=== PATIENT | male | born 1930 | race Caucasian/White ===

== ENCOUNTER 2016-09-02 12:19 | Inpatient (IN) | payer OTHER, BC ==
--- NOTE | 2016-09-02 12:25 | PDOC ---
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 difficile colitis, who presents to the emergency department after he developed the acute onset of shortness of breath associated with mental status change. His home health aid was assisting him as he changed, when the patient abruptly developed difficulty breathing and was sluggishly responsive to her interaction. It is unclear whether or not he lost consciousness, but she is clear that he was not responding appropriately. The episode was not precipitated by coughing, vomiting. The patient is now awake, alert, oriented to person, place and time. He does not recall the episode. He is currently experiencing difficulty breathing, which he states "happens all the time." He states that this is not the most severe episode he has ever had. 09/02/16 12:57 09/02/16 13:01 - Physicial Exam PE: 09/02/16 12:46 The patient is in moderate respiratory distress He is tachypneic He has expiratory wheezes bilaterally He has scattered rhonchi EKG: Sinus tachycardia with occasional premature atrial contractions, inverted T -wave in V1, V2, flat T-wave in aVL, very wavy baseline No obvious ST changes 09/02/16 14:23 - Critical Care Time Total Critical Care Time: 75 Critical Care Statement: The care of this patient involved high complexity decision making to prevent further life threatening deterioration of the patient 's condition and/or to evalute & treat vital organ system(s) failure or risk of failure. - Medical Decision Making 09/02/16 12:27 The patient is in moderate respiratory distress I'm concerned for possible aspiration, given the abrupt nature of the episode He is ALLERGIC to albuterol Will begin Atrovent nebulizer therapy Will administer IV Solu-Medrol Will administer IV magnesium Will begin BiPAP Will obtain labs, using the sepsis order set Will obtain stat portable chest x-ray I discussed the case with the patient's niece, who was on her way to the hospital She states that the patient makes his own medical decisions, but feels that he will have difficulty grasping complex issues even at baseline At this point, he does not appear to have the capacity to make decisions given his severe distress and suspected hypercarbia She feels that he would not want intubation or resuscitation, but would agree to BiPAP She states that during previous hospitalizations he has expressed the desire for DNR/DNI status 09/02/16 12:47 The patient appears somewhat improved after his evening to Atrovent nebulizer treatments He is on BiPAP, tolerating it well Chest x-ray, labs pending 09/02/16 12:49 Chest x-ray emergency Department interpretation: No significant interval change Niece is at the bedside, and is able to again explain to me that on all of his previous admissions he has had DNR/DNI status He will need transfer either to the [facility] ICU, or to [facility], from where he was recently discharged, and to which his niece would like him transferred I have called his roof cement and paint maker helper who is also his forensic toxicologist, and am awaiting a call back 09/02/16 13:03 CBC noted, with leukocytosis He meets diagnostic criteria for SIRS Given the acute nature of the event, I do not feel that he is already infected, and I suspect aspiration pneumonitis However, given the severity of his illness, and his advanced age, we will administer vancomycin and clindamycin to cover aspiration event james 09/02/16 13:[address] Gusman, his forensic toxicologist and roof cement and paint maker helper The patient has advanced stage COPD He clarifies that the patient's "ALLERGIC reaction" to albuterol it is tachycardia The forensic toxicologist has discussed goals of care with the patient and the niece, and they have previously agreed to a DNR/DNI status The niece and patient both wants to maintain the current DNR/DNI status Labs pending Will initiate transfer to the [facility] ICU for further management 09/02/16 13:15 09/02/16 13:26 Labs noted After extensive discussion with the patient's niece, she refuses admission to the [facility], and requests transfer to [facility] I have called his primary care/forensic toxicologist again I'm calling the [facility] transfer center 09/02/16 13:34 Case discussed again with the patient's primary care physician, forensic toxicologist He is accepted for transfer to [facility] I discussed the case with the [facility] emergency physician He is much improved on BiPAP, in very mild respiratory distress, with better air movement, and an improved lung exam I feel that he is stable for transfer on BiPAP 09/02/16 13:[address] Tavares, hospitalist at [facility] who accepts the patient for transfer 09/02/16 14:08 Elevated troponin noted Will repeat EKG At this point in time, I feel that this is demand related Will administer aspirin, but hold anticoagulation at this point in time 09/02/16 14:23 Repeat EKG: Atrial fibrillation with a ventricular rate of approximately 112, inverted T waves in V1 through V3, no obvious ST changes 09/02/16 14:41 I received a call from the hospitalist physician at [facility] She told me that Dr. Dixon, emergency physician who replaced the previous emergency physician, refuses the transfer At this point in time, given the elevated troponin, new onset atrial fibrillation and NSTEMI, I feel that shorter transport time to the [facility] is in the patient's best interest I have discussed this with the daughter, and she agrees Clinical impression: Acute exacerbation of COPD Hypercarbic respiratory failure New-onset atrial fibrillation NSTEMI 09/02/16 14:43 VBG and ABG results noted The VBG was taken before BiPAP The ABG was taken approximately 20 minutes after BiPAP This supports improving respiratory acidosis 09/02/16 15:08 Elevated BNP noted Elevated lactic acid noted I suspect that the elevated lactate is secondary to prolonged hypoxemia, rather than sepsis Given that there is no clear source of infection, he does not meet diagnostic criteria for sepsis The extent of the BNP elevation is suggestive of congestive heart failure Will judiciously administer IV fluids He has a bed in the ICU, and we are awaiting transfer He remains stable for transfer, without any respiratory distress on BiPAP 09/02/16 16:27 Discharge Disposition - Diagnosis COPD with exacerbation - Discharge Dispostion Disposition: TRANSFER ACUTE CARE/OTHER HOSP Condition at time of disposition: Critical Last Admission D/C Date: 03/31/16 Admit: Yes
[2016-09-02] MEDS ORDERED: methylPREDNISolone NA SUCC 125 MG/2 ML VIAL IVPB ONE (12:27)
[2016-09-02] MEDS ORDERED: MAGNESIUM SULFATE 2 GM in SODIUM CHLORIDE 100 ML IVPB ONE (12:27)
[2016-09-02] MEDS ORDERED: IPRATROPIUM BR 0.02% 0.5 MG/2.5 ML VIAL.NEB. NEB PRN ×2 (12:27→12:48)
--- NOTE | 2016-09-02 12:33 | PDOC ---
History of Present Illness - General Chief Complaint: Shortness of Breath Stated Complaint: SOB Time Seen by Provider: 09/02/16 12:22 - History of Present Illness Initial Comments: 09/02/16 12:28 The pt is a 86 year old male with a PMH of COPD, C.Diff. colitis, urinary retention who presents brought by ambulance complaining of SOB for 15 minutes. The pt was being cleaned by health care nurse when became less responsive to her commands and felt SOB. She called EMS immediately. The pt was discharged from the hospital yesterday. He was treated for COPD exacerbation, hyponatremia due to SIADH, C.Diff. colitis. He states that didn't lose consciousness. He states that it is not the worse that he ever felt. The pt denies weakness, headache, chest pain, SOB. He denies abdominal pain, N/V, diarrhea, constipation. No fever, chills.ROS is limited since the pt is in moderate distress. He denies chest pain, palpitations, dizziness, headache, weakness. He denies abdominal pain, N/V, diarrhea, fever, chills. He denies cough. Past History - Past Medical History Allergies/Adverse Reactions: Allergies Allergy/AdvReac Type Severity Reaction Status Date / Time albuterol AdvReac Verified 09/02/16 13:35 Home Medications: Ambulatory Orders Aspirin [ASA -] 81 mg PO DAILY 09/02/16 Beclomethasone Dipropionate [Qnasl] 0 mcg NS DAILY 09/02/16 Budesonide [Pulmicort 0.5 mg Nebulizer -] 1 neb PO BID 09/02/16 Cranberry Conc/Ascorbic Acid [Cranberry Concentrate Softgel] 1 each PO DAILY 06/20 Dextran 70/Hypromellose [Artificial Tears] 1 each OP TID 09/02/16 Escitalopram Oxalate [Lexapro -] 5 mg PO DAILY 09/02/16 Finasteride [Proscar -] 5 mg PO DAILY 09/02/16 Levalbuterol Tartrate [Levalbuterol Tartrate Hfa] 15 gm IH Q6H 09/02/16 Metronidazole [Flagyl -] 500 mg PO DAILY 09/02/16 Miconazole Nitrate [Zeasorb-AF] 1 applic TP BID 09/02/16 Multivitamins [Tab-A-Vit -] 1 tab PO DAILY 09/02/16 Umeclidinium Brm/Vilanterol Tr [Anoro Ellipta 62.5-25 Mcg INH] 1 each IH DAILY 09/02/16 Vancomycin HCl [Vancocin HCl] 250 mg PO Q6H 09/02/16 Cancer: Yes (BLADDER AND COLON) COPD: Yes - Surgical History Abdominal Surgery: Yes (COLON RESECTION) - Psycho/Social/Smoking Cessation Hx Anxiety: No Suicidal Ideation: No Smoking Status: Yes Smoking History: Former smoker Years of Tobacco Use: 20 Have you smoked in the past 12 months: No Number of Cigarettes Smoked Daily: 20 If you are a former smoker, when did you quit?: 1978 Hx Alcohol Use: No Drug/Substance Use Hx: No Substance Use Type: None Hx Substance Use Treatment: No Review of Systems - Review of Systems Able to Perform ROS?: Yes Comments:: 09/02/16 12:31 REVIEW OF SYSTEMS limited due to pt being in distress CONSTITUTIONAL: Absent: fever, chills CARDIOVASCULAR: Absent: chest pain, RESPIRATORY: shortness of breath, Absent: cough, GASTROINTESTINAL: Absent: abdominal pain, GENITOURINARY: Absent: dysuria, frequency NEUROLOGIC: Absent: headache, *Physical Exam - Physical Exam Comments: 09/02/16 12:32 GENERAL: The patient is awake, alert, and fully oriented, in moderate distress. HEAD: Normal with no signs of trauma. EYES: extraocular movements intact, sclera anicteric, conjunctiva clear. ENT: dry mucous membranes. NECK: Trachea midline, full range of motion, supple. LUNGS: Breath sounds equal, scattered rhales, expiratory wheezes, no crackles, no accessory muscle use. HEART: Regular rate and rhythm, S1, S2 without murmur, rub or gallop. ABDOMEN: Soft, nontender, nondistended, normoactive bowel sounds, no guarding, no rebound. EXTREMITIES: well-perfused, no edema. NEUROLOGICAL: Normal speech, gait not observed. PSYCH: Normal mood, normal affect. SKIN: Warm, dry, normal turgor, no rashes or lesions noted Sepulveda Catheter present, draining yellow urine. ED Treatment Course - LABORATORY CBC & Chemistry Diagram: 09/02/16 12:35 09/02/16 12:35 Medical Decision Making - Medical Decision Making 09/02/16 12:33 The pt comes to ED complaining of SOB. Differential diagnosis include ACS, COPD exacerbation, aspiration PNA, URI, heart failure, metabolite abnormalities. 09/02/16 12:54 We ordered CBC, CMP, UA, CXR, EKG, ABGs, blood cx, urine cx, , Vancomycin ONCE, Clindamycin ONCE, Atrovent, Solu-medrol IV. He is currently on 3 L NC. We will start Bi-Pap. 09/02/16 13:22 CXR no acute pathology, no change when compared with previous one. Elevated WBC. Aspiration PNA is very high on differential diagnosis. We will give abx, the pt will be transferred to [facility] for further treatment. We contacted Dr. Bernadette Buchanan his PCP and Collar Worker. We confirmed that the pt has n stage COPD. 09/02/16 13:35 The pt clinically improved. We contacted [facility] ED doctor who accepted him for transfer. We reviewed his laboratory. He is stable enough for the transfer, Waiting for ABGs. results. 09/02/16 14:42 The pt was found to have metabolic acidosis and elevated troponins. He also has new onset of A.Fib. EKG repeated. The family requested transfer to [facility] but he was not accepted. The pt will be transferred to ICU in [facility]. We are waiting for approval. 09/02/16 16:34 ABG suggest that pt has metabolic acidosis, possibly due to hypoxemia not sepsis. His BNP is elevated suggestive for heart failure, elevated lactic acid noted The pt meets SIRS criteria. We will continue IVF and wait for transfer to ICU at [facility]. ta in [facility]. *DC/Admit/Observation/Transfer Diagnosis at time of Disposition: COPD with exacerbation - Discharge Dispostion Disposition: TRANSFER ACUTE CARE/OTHER HOSP Condition at time of disposition: Critical
[2016-09-02] MEDS ORDERED: methylPREDNISolone NA SUCC 125 MG/2 ML VIAL ONE (12:36)
[2016-09-02 12:43] VITALS: BMI 26.5
[2016-09-02] MEDS ORDERED: IPRATROPIUM BR 0.02% 0.5 MG/2.5 ML VIAL.NEB. NEB ONE (12:44)
[2016-09-02 12:52] LABS: BASOPHIL 0.5 % (0-2.0); EOSINOPHIL 0.8 % (0-4.5); MCHC 33.4 g/dl (32.0-35.9); MEAN CELL VOLUME 98.7 fl (80-96); MEAN PLT VOLUME 7.7 fl (7.5-11.1); NEUTROPHILS 49.4 % (42.8-82.8); PLATELET COUNT 312 K/MM3 (134-434); RDW 15.2 % (11.9-15.9); WHITE BLOOD COUNT 17.3 K/mm3 (4.0-10.0)
[2016-09-02] MEDS ORDERED: CLINDAMYCIN IVPB 900 MG in DEXTROSE 5%-WATER - 50 ML IVPB ONE (13:00)
[2016-09-02] MEDS ORDERED: VANCOMYCIN 1,000 MG in DEXTROSE 5%-WATER - 250 ML IVPB ONE (13:01)
[2016-09-02 13:12] LABS: URINE BILIRUBIN Negative (NEGATIVE); URINE GLUCOSE (UA) Negative (NEGATIVE); URINE KETONE Negative (NEGATIVE); URINE LEUK ESTERASE Trace (NEGATIVE); URINE NITRITE Negative (NEGATIVE); URINE UROBILINOGEN 0.2 E.U/dl (0.2-1.0)
[2016-09-02 13:12] LABS: ACTIVATED PTT 30.4 SECONDS (24.0-38.9)
[2016-09-02 13:14] LABS: ALBUMIN 3.6 g/dl (3.5-5.0); ALK PHOS 70 U/L (32-92); ANION GAP 8 (8-16); BILIRUBIN,TOTAL 0.4 mg/dl (0.2-1.0); CALCIUM 9.1 mg/dl (8.4-10.2); CO2 29 mmol/L (22-28); CREATININE 0.6 mg/dl (0.6-1.3); GLUCOSE,RANDOM 297 mg/dl (74-106); SGOT/AST 60 U/L (10-42); SGPT/ALT 14 U/L (10-40); TOT PROT 6.3 g/dl (6.4-8.3)
[2016-09-02] MEDS ORDERED: VANCOMYCIN 1,000 MG VIAL (RESTRICTED TO ID ONLY) ONE (13:14)
[2016-09-02 13:16] LABS: INR 1.16 (0.82-1.09); PROTHROMBIN TIME (PATIENT) 12.9 SEC (10.2-13.0)
[2016-09-02 13:22] LABS: URINE APPEARANCE CLOUDY; URINE BLOOD 3+ (NEGATIVE); URINE COLOR AMBER; URINE PROTEIN 2+ (NEGATIVE)
[2016-09-02 13:34] LABS: URINE RBC >100 /hpf (0-3)
[2016-09-02 13:35] LABS: CALCIUM OXALATE CRYSTALS FEW /hpf (NONE SEEN); URINE BACTERIA RARE /hpf (NEGATIVE)
[2016-09-02 14:02] LABS: TROPONIN I (DFP) 0.55 ng/ml (0.03-0.50)
[2016-09-02] MEDS ORDERED: ASPIRIN 81 MG CHEWABLE TABLETS ONE (14:03)
[2016-09-02] MEDS ORDERED: ASPIRIN 81 MG CHEWABLE TABLETS PO ONE (14:03)
[2016-09-02] MEDS ORDERED: CLINDAMYCIN PHOSPHATE 600 MG/4 ML VIAL ONE (14:03)
[2016-09-02] MEDS ORDERED: CLINDAMYCIN PHOSPHATE 300 MG/2 ML VIAL ONE (14:03)
--- NOTE | 2016-09-02 14:29 | EKG ---
Test Reason : Blood Pressure : / mmHG Vent. Rate : 111 BPM Atrial Rate : 111 BPM P-R Int : 000 ms QRS Dur : 102 ms QT Int : 338 ms P-R-T Axes : 065 008 044 degrees QTc Int : 459 ms POOR DATA QUALITY, INTERPRETATION MAY BE ADVERSELY AFFECTED SINUS TACHYCARDIA LOW VOLTAGE QRS INCOMPLETE RIGHT BUNDLE BRANCH BLOCK NONSPECIFIC T WAVE ABNORMALITY BORDERLINE ECG WHEN COMPARED WITH ECG OF 26-MAR-2016 09:24, INCOMPLETE RIGHT BUNDLE BRANCH BLOCK IS NOW PRESENT Confirmed by KAREN DEMPSEY MD ([id number] on 09/02/2016 2:28:43 PM Referred By: PRAVEEN HAWTHORNE Confirmed By:KAREN DEMPSEY MD
[2016-09-02 14:32] LABS: VENOUS BLOOD GAS HCO3 29.1 meq/L (19-25)
[2016-09-02 14:33] LABS: VENOUS PH 7.18 (7.32-7.42)
[2016-09-02 14:36] LABS: ARTERIAL BLOOD GAS pH 7.33 (7.35-7.45)
[2016-09-02 14:37] LABS: ARTERIAL BLOOD GAS HCO3 27.2 meq/L (22-26); ARTERIAL BLOOD GAS PO2 96.2 mmHg (68-100)
[2016-09-02 14:39] LABS: ALLENS TEST POSITIVE; ART PUNCT SITE RIGHT RADIAL; LPM/O2% 40%; PT. ON O2? YES; VENT RATE 12
[2016-09-02] MEDS ORDERED: SODIUM CHLORIDE 1,000 ML IV SCH ×2 (15:15→17:37)
--- NOTE | 2016-09-02 17:10 | HP ---
CHIEF COMPLAINT: SOB HISTORY OF PRESENT ILLNESS: This is an 86 year-old male with a significant PMH of COPD with multiple aspirations, recurrent c.diff colitis (four episodes since 03/2016), diastolic heart failure, NSTEMI (03/2016), bladder cancer, BPH, obstructive uropathy requiring chronic powers, and colon cancer s/p colon resection. Discharged two days ago from [facility] for SIADH hyponatremia and c.diff colitis. Patient presented earlier today to the [facility] ED after he developed acute onset of SOB with mental status change. His home health aid was assisting him as he changed, when the patient abruptly developed difficulty breathing and was sluggishly responsive to her interaction. It is unclear whether or not he lost consciousness, but she is clear that he was not responding appropriately. The episode was not precipitated by coughing, vomiting. PCP: Dr. Sal, stone derrickman and rigger and economic development manager ([facility]) Rn Urgent Care: Dr. Randy Thornton Urologist: Dr. Vera ([facility]) ER course was notable for: (1) ABG 7.33/53/96/27/97% on 40% FiO2 (2) Initial ECG sinus tach, then new onset afib with RVR @ 112 (3) Initial troponin 0.55 (4) Lactic acid 3.9-->1.6 Recent Travel: No PAST MEDICAL HISTORY: COPD SIADH C.diff colitis Bladder cancer Colon cancer BPH Diastolic heart failure NSTEMI PAST SURGICAL HISTORY: Colon resection Social History: Smoking: quit 1978 Alcohol: No Drugs: No Family History: Allergies Albuterol Adverse Reaction - tachycardia (Verified 09/02/16 13:35) Home Medications Medication Instructions Recorded Acetaminophen [Tylenol] 650 mg PO Q6H PRN 09/02/16 Aspirin [ASA -] 81 mg PO DAILY 09/02/16 Beclomethasone Dipropionate [Qnasl] 0 mcg NS DAILY 09/02/16 Budesonide [Pulmicort 0.5 mg 1 neb PO BID 09/02/16 Nebulizer -] Cranberry Conc/Ascorbic Acid 1 each PO DAILY 09/02/16 [Cranberry Concentrate Softgel] Dextran 70/Hypromellose 1 each OP TID 09/02/16 [Artificial Tears] Escitalopram Oxalate [Lexapro -] 5 mg PO DAILY 09/02/16 Finasteride [Proscar -] 5 mg PO DAILY 09/02/16 Flaxseed/Omega3,6,9/Fatty Acid 1 each PO DAILY 09/02/16 [Flax Seed Oil 1,300 mg Softgel] Levalbuterol Tartrate 15 gm IH Q6H 09/02/16 [Levalbuterol Tartrate Hfa] Metronidazole [Flagyl -] 500 mg PO DAILY 09/02/16 Miconazole Nitrate [Zeasorb-AF] 1 applic TP BID 09/02/16 Multivitamins [Tab-A-Vit -] 1 tab PO DAILY 09/02/16 Sodium Chloride Tablet - 1 gm PO TID 09/02/16 Umeclidinium Brm/Vilanterol Tr 1 each IH DAILY 09/02/16 [Anoro Ellipta 62.5-25 Mcg INH] Vancomycin HCl [Vancocin HCl] 250 mg PO Q6H 09/02/16 REVIEW OF SYSTEMS Unable to ascertain due to altered mental status/illness PHYSICAL EXAMINATION GENERAL: Awake, alert. Oriented x 3 (September 02, 2016, [facility], Pres. Trump) but repeatedly pointing to the ceiling and counting ceiling tiles, confused; very weak HEAD: Normal with no signs of trauma. EYES: Pupils equal, round and reactive to light, extraocular movements intact, sclera anicteric, conjunctiva clear. No lid lag. EARS, NOSE, THROAT: Ears normal, nares patent, oropharynx clear without exudates. Moist mucous membranes. NECK: Normal range of motion, supple without lymphadenopathy, JVD, or masses. LUNGS: Diffuse wheezing, rhochi. No accessory muscle use. HEART: Regular rate and rhythm, normal S1 and S2 without murmur, rub or gallop. ABDOMEN: Soft, nontender, not distended, normoactive bowel sounds, no guarding, no rebound, no masses. MUSCULOSKELETAL: Normal range of motion at all joints. No bony deformities or tenderness. No CVA tenderness. UPPER EXTREMITIES: 2+ pulses, warm, well-perfused. No cyanosis. No clubbing. No peripheral edema. LOWER EXTREMITIES: 2+ pulses, warm, well-perfused. No calf tenderness. No peripheral edema. NEUROLOGICAL: Cranial nerves II-XII intact. Normal speech. Gait not observed. ASSESSMENT/PLAN: 86 year-old male with a significant PMH of COPD with multiple aspirations, recurrent c.diff colitis, bladder cancer, BPH, obstructive uropathy, colon cancer s/p colon resection, diastolic heart failure, NSTEMI, and SIADH hyponatremia. Admitted for acute onset SOB and mental status changes. Acute hypercarbic respiratory failure likely secondary to COPD exacerbation, aspiration --mental status waxes and wanes --oxygenation requirements have improved, off BIPAP, satting 96% on 3L NC --repeat ABG in am --BIPAP PRN Lactic acidosis --resolved Diastolic heart failure, chronic --03/28/16 Echo: LV normal, impaired relaxation; RV normal; no acute valvular pathology --stop IV fluids as patient is hemodynamically stable at this time --no diuresis for now NSTEMI --troponin 0.55-->1.08 --previous NSTEMI in 2015 in similar circumstances following an acute hypoxic event --continue home dose ASA, will not fully anticoagulate given likely this is demand ischemia plus patient with hematuria; discussed with Dr. Mora who concurs New onset afib with RVR --arrived to ED in sinus tach, then afib to 112, now back in sinus rhythm with rate 90s on monitor --repeat ECG pending --hemodynamically stable --ASA only --if recurs start beta nolberto Bladder cancer Gross hematuria BPH --dark red blood in powers, UA with > 100 RBCs --has had chronic powers since 03/2016; had [employer] procedure in 04/2016 but not successful in relieving obstruction --current powers was placed about 3 weeks ago; urine has been clear prior to today --strict I&Os, monitor for obstruction, clotting h/o SIADH hyponatremia --was started on salt tabs 2 days ago when discharged from [facility] with strict fluid restrictions --Na 136 on admission --fluid restrict --renal consult Colon cancer --no acute issues Recurrent C.diff colitis --continue PO vanc and flagyl --c.diff stool study ordered BPH --continue Proscar F/E/N Fluids: PO intake adequate Electrolytes: replete as indicated Nutrition: dysphagia puree, honey thick, Ensure DVT prophylaxis: no chemical prophylaxis due to hematuria; oob, ambulation PT evaluation/daily PT Dispo: continues to require ICU level care. DNR/DNI signed by HCP Carli Reese. Visit type - Emergency Visit Emergency Visit: Yes ED Registration Date: 09/02/16 Care time: The patient presented to the Emergency Department on the above date and was hospitalized for further evaluation of their emergent condition. - New Patient This patient is new to me today: Yes Date on this admission: 09/02/16 - Critical Care Critical Care patient: Yes Total Critical Care Time (in minutes): 120 Critical Care Statement: The care of this patient involved high complexity decision making to prevent further life threatening deterioration of the patient 's condition and/or to evalute & treat vital organ system(s) failure or risk of failure.
[2016-09-02] MEDS ORDERED: metroNIDAZOLE 500 MG TABLET PO SCH (18:30)
[2016-09-02] MEDS: ASPIRIN 81 MG CHEWABLE TABLETS PO SCH (18:30)
[2016-09-02] MEDS ORDERED: PATIENT'S OWN MEDICATION (NON-FORMULARY) (Escitalopram Oxalate [Lexapro -] 5 MG) PO SCH (18:30)
[2016-09-02 19:49] LABS: TROPONIN I 1.08 ng/ml (0.00-0.05)
[2016-09-02] MEDS ORDERED: metroNIDAZOLE 250 MG TABLET PO SCH (20:07)
[2016-09-02] MEDS ORDERED: PT OWN MED DRAWER 7, Y5N ONE (21:36)
[2016-09-02] MEDS: VANCOMYCIN 250 MG/5 ML ORAL SOLUTION PO SCH (21:52)
[2016-09-02] MEDS: ARTIFICIAL TEARS (POLYVINYL ALCOHOL 1.4%) OPTH DROPS OU SCH (21:53)
[2016-09-02] MEDS: ESCITALOPRAM OXALATE 10 MG TABLET (FP) PO SCH (21:53)
[2016-09-02] MEDS: SODIUM CHLORIDE 1 GM TABLET PO SCH (21:54)
[2016-09-02] MEDS: MUPIROCIN 2% TOPICAL OINTMENT FOR DECOLONIZATION NS SCH (21:54)
[2016-09-02] MEDS: FINASTERIDE 5 MG TABLET (FP) PO SCH (21:54)
[2016-09-02] MEDS ORDERED: PATIENT'S OWN MEDICATION (NON-FORMULARY) (Dextran 70/Hypromellose [Artificial Tears] 1 EAC OP SCH (22:00)
[2016-09-02] MEDS ORDERED: CHLORHEXIDINE GLUCONATE 4% CLEANSER FOR DECOLONIZATION TP SCH (22:00)
--- NOTE | 2016-09-02 22:48 | CONSULT ---
Consult Consult Specialty:: Pulm/CCM Reason for Consultation:: AMS - History of Present Illness History of Present Illness: This is an 86 year-old male with a significant PMH of COPD with multiple aspirations, recurrent c.diff colitis (four episodes since 03/2016), diastolic heart failure, NSTEMI (03/2016), bladder cancer, BPH, obstructive uropathy requiring chronic powers, and colon cancer s/p colon resection. Discharged two days ago from [place] for SIADH hyponatremia and c.diff colitis. Patient presented to the [facility] ED after he developed acute onset of SOB and mental status change. The episode was not precipitated by coughing, vomiting. In Ed found to be with hypercarbic respiratory failure with ABG 7.18, 91 which improved to 7.33/53/96 on 40% BiPAP 03/08. He was treated for possible COPD exacerbation and able to wean off BIpAP to NC 3L. Also developed A-fib with RVR to 112 which resolved. Notable labs lact 3.9-> 1.6 with fluid Trop 0.55, WBC 17 , BNP 6313. He was started on antibiotics re c/f recurrent C-diff infection and transfered to ICU for further management. - History Source History Provided By: Medical Record Limitations to Obtaining History: Poor Historian - Past Medical History Cardio/Vascular: Yes: CHF, Other (NSTEMI) Pulmonary: Yes: COPD, Other (multiple aspirations) Gastrointestinal: Yes: Other (Recurrent C-diff colitis) Renal/: Yes: BPH, Hematuria, Other (Obstructive uropathy with chronic powers) Heme/Onc: Yes: Cancer (Colon and bladder) Infectious Disease: Yes: C-Diff - Alcohol/Substance Use Hx Alcohol Use: No - Smoking History Smoking history: Former smoker Have you smoked in the past 12 months: No Aproximately how many cigarettes per day: 20 If you are a former smoker, when did you quit?: 1978 - Social History Usual Living Arrangement: Other (with [facility]) Home Medications - Allergies Allergies/Adverse Reactions: Allergies Allergy/AdvReac Type Severity Reaction Status Date / Time albuterol AdvReac Verified 09/02/16 13:35 - Home Medications Home Medications: Ambulatory Orders Acetaminophen [Tylenol] 650 mg PO Q6H PRN 09/02/16 Aspirin [ASA -] 81 mg PO DAILY 09/02/16 Beclomethasone Dipropionate [Qnasl] 0 mcg NS DAILY 09/02/16 Budesonide [Pulmicort 0.5 mg Nebulizer -] 1 neb PO BID 09/02/16 Cranberry Conc/Ascorbic Acid [Cranberry Concentrate Softgel] 1 each PO DAILY 06/20 Dextran 70/Hypromellose [Artificial Tears] 1 each OP TID 09/02/16 Escitalopram Oxalate [Lexapro -] 5 mg PO DAILY 09/02/16 Finasteride [Proscar -] 5 mg PO DAILY 09/02/16 Flaxseed/Omega3,6,9/Fatty Acid [Flax Seed Oil 1,300 mg Softgel] 1 each PO DAILY 09/02/16 Levalbuterol Tartrate [Levalbuterol Tartrate Hfa] 15 gm IH Q6H 09/02/16 Metronidazole [Flagyl -] 500 mg PO DAILY 09/02/16 Miconazole Nitrate [Zeasorb-AF] 1 applic TP BID 09/02/16 Multivitamins [Tab-A-Vit -] 1 tab PO DAILY 09/02/16 Sodium Chloride Tablet - 1 gm PO TID 09/02/16 Umeclidinium Brm/Vilanterol Tr [Anoro Ellipta 62.5-25 Mcg INH] 1 each IH DAILY 09/02/16 Vancomycin HCl [Vancocin HCl] 250 mg PO Q6H 09/02/16 Family Disease History - Family Disease History Family History: Unremarkable Review of Systems - Review of Systems Constitutional: reports: Weakness Eyes: reports: No Symptoms HENT: reports: No Symptoms Neck: reports: No Symptoms Cardiovascular: reports: No Symptoms Respiratory: reports: No Symptoms Gastrointestinal: reports: No Symptoms Neurological: reports: No Symptoms Hematology/Lymphatic: reports: Easily Bruised Physical Exam Vital Signs: Vital Signs Temperature 97.0 F L 09/02/16 16:52 Pulse Rate 99 H 09/02/16 17:28 Respiratory Rate 22 09/02/16 17:28 Blood Pressure 97/74 09/02/16 16:52 O2 Sat by Pulse Oximetry (%) 96 09/02/16 17:37 Constitutional: Yes: No Distress, Calm Eyes: Yes: Conjunctiva Clear HENT: Yes: Atraumatic, Normocephalic Neck: Yes: WNL Cardiovascular: Yes: Regular Rate and Rhythm Respiratory: Yes: Regular, Diminished, On Nasal O2 Gastrointestinal: Yes: Normal Bowel Sounds, Soft, Other (non tender) Renal/: Yes: Powers Present Extremities: Yes: WNL, Other (Ecchymoses on BUE) Edema: LUE: Trace Integumentary: Yes: Bruising (LUE) Neurological: Yes: Alert (Awake and oriented x3) Labs: ABG Results ABG pH 7.33 (7.35-7.45) L 09/02/16 13:34 ABG pCO2 at Pt Temp 53.0 mmHg (35-45) H D 09/02/16 13:34 ABG pO2 at Pt Temp 96.2 mmHg (68-100) 09/02/16 13:34 ABG HCO3 27.2 meq/L (22-26) H 09/02/16 13:34 ABG O2 Sat (Measured) 97.0 % (90-98.9) 09/02/16 13:34 ABG O2 Content 16.2 % vol (15-22) 09/02/16 13:34 ABG Base Excess 1.0 meq/l (-2-2) 09/02/16 13:34 CMP Sodium 136 mmol/L (136-145) 09/02/16 12:35 Potassium 4.6 mmol/L (3.5-5.1) 09/02/16 12:35 Chloride 99 mmol/L (98-107) 09/02/16 12:35 Carbon Dioxide 29 mmol/L (22-28) H D 09/02/16 12:35 Anion Gap 8 (8-16) 09/02/16 12:35 BUN 25 mg/dl (7-18) H D 09/02/16 12:35 Creatinine 0.6 mg/dl (0.6-1.3) D 09/02/16 12:35 Creat Clearance w eGFR > 60 (>60) 09/02/16 12:35 Random Glucose 297 mg/dl (74-106) H D 09/02/16 12:35 Lactic Acid 1.621 mmol/L (0.4-2.0) 09/02/16 15:06 Calcium 9.1 mg/dl (8.4-10.2) 09/02/16 12:35 Total Bilirubin 0.4 mg/dl (0.2-1.0) D 09/02/16 12:35 AST 60 U/L (10-42) H D 09/02/16 12:35 ALT 14 U/L (10-40) 09/02/16 12:35 Alkaline Phosphatase 70 U/L (32-92) D 09/02/16 12:35 Creatine Kinase 75 IU/L (39-308) 09/02/16 18:45 Troponin I 1.08 ng/ml (0.00-0.05) H* D 09/02/16 18:45 B-Natriuretic Peptide 6318.82 pg/ml (5-450) H 09/02/16 12:35 Total Protein 6.3 g/dl (6.4-8.3) L 09/02/16 12:35 Albumin 3.6 g/dl (3.5-5.0) 09/02/16 12:35 CBC WBC 17.3 K/mm3 (4.0-10.0) H D 09/02/16 12:35 RBC 4.16 M/mm3 (4.00-5.60) 09/02/16 12:35 Hgb 13.7 GM/dl (11.7-16.9) 09/02/16 12:35 Hct 41.1 % (35.4-49) 09/02/16 12:35 MCV 98.7 fl (80-96) H 09/02/16 12:35 MCHC 33.4 g/dl (32.0-35.9) 09/02/16 12:35 RDW 15.2 % (11.9-15.9) D 09/02/16 12:35 Plt Count 312 K/MM3 (134-434) 09/02/16 12:35 MPV 7.7 fl (7.5-11.1) 09/02/16 12:35 Neutrophils % 49.4 % (42.8-82.8) D 09/02/16 12:35 Lymphocytes % 45.4 % (8-40) H D 09/02/16 12:35 Monocytes % 3.9 % (3.8-10.2) 09/02/16 12:35 Eosinophils % 0.8 % (0-4.5) D 09/02/16 12:35 Basophils % 0.5 % (0-2.0) 09/02/16 12:35 Active Medications Acetaminophen (Tylenol -) 650 mg PO Q6H PRN PRN Reason: PAIN Artificial Tears (Artificial Tears) 1 drop OU TID [facility] Last Admin: 09/02/16 21:53 Dose: 1 drop Aspirin (Asa -) 81 mg PO DAILY [facility] Last Admin: 09/02/16 18:30 Dose: Not Given Chlorhexidine Gluconate (Hibiclens For Decolonization -) 1 applic TP HS [facility] Last Admin: 09/02/16 22:29 Dose: 1 applic Escitalopram Oxalate (Lexapro -) 5 mg PO DAILY [facility] Last Admin: 09/02/16 21:53 Dose: 5 mg Finasteride (Proscar -) 5 mg PO DAILY [facility] Last Admin: 09/02/16 21:54 Dose: 5 mg Ipratropium [place] (Atrovent 0.02% Nebulizer -) 1 amp NEB Q1H PRN PRN Reason: WHEEZING Last Admin: 09/02/16 12:35 Dose: 1 amp Ipratropium [place] (Atrovent 0.02% Nebulizer -) 1 amp NEB Q1H PRN PRN Reason: WHEEZING Metronidazole (Flagyl -) 500 mg PO DAILY [facility] Mupirocin (Bactroban Ointment (For Decolonization) -) 1 applic NS BID [facility] Stop: 09/07/16 21:59 Last Admin: 09/02/16 21:54 Dose: 1 applic Sodium Chloride (Sodium Chloride Tablet -) 1 gm PO TID [facility] Last Admin: 09/02/16 21:54 Dose: 1 gm Vancomycin HCl (Vancomycin Oral Solution) 250 mg PO Q6H [facility] Last Admin: 09/02/16 21:52 Dose: 250 mg Problem List - Problems (1) COPD with exacerbation Code(s): J44.1 - CHRONIC OBSTRUCTIVE PULMONARY DISEASE W (ACUTE) EXACERBATION (2) Acute kidney injury Code(s): N17.9 - ACUTE KIDNEY FAILURE, UNSPECIFIED (3) NSTEMI (non-ST elevated myocardial infarction) Code(s): I21.4 - NON-ST ELEVATION (NSTEMI) MYOCARDIAL INFARCTION Assessment/Plan This is an 86 year-old male with a significant PMH of COPD with multiple aspirations, recurrent c.diff colitis (four episodes since 03/2016), diastolic heart failure, NSTEMI (03/2016), bladder cancer, BPH, obstructive uropathy requiring chronic powers, and colon cancer s/p colon resection. Admitted to hospital with c/o acute episode of SOB m/l in setting of COPD exacerbation requiring BiPAP m/l 2/2 infectious process +/- CHF exacerbation. Ccb ALBERT, elevated trops. Pulm: Hypercarbic respiratory failure now improved;off BiPAP and on NC O2 -NC O2 for O2 sat >95% - Continue nebs and steroids -ABG ID: Leukocytosis -f/u cultures, blood, urine, stool -Continue Flagyl and Vanco po for c-diff coverage -Tailor antibiotics to cxl results -Trend lactate CV: CHF exacerbation with elevated BNP, bump in trop / in setting of A-fib now resolved; in NSR -HD mintoring -Hold fluids -lasix prn for e/o overload -trend trop -ECG
[2016-09-03] MEDS: VANCOMYCIN 250 MG/5 ML ORAL SOLUTION PO SCH ×4 (01:19→17:41)
[2016-09-03] MEDS: ARTIFICIAL TEARS (POLYVINYL ALCOHOL 1.4%) OPTH DROPS OU SCH ×3 (05:51→22:11)
[2016-09-03] MEDS: SODIUM CHLORIDE 1 GM TABLET PO SCH ×3 (05:51→22:00)
[2016-09-03 05:57] LABS: BASOPHIL 0.2 % (0-2.0); MCH 32.9 pg (25.7-33.7); MCHC 33.5 g/dl (32.0-35.9); MEAN CELL VOLUME 98.4 fl (80-96); MEAN PLT VOLUME 7.6 fl (7.5-11.1); NEUTROPHILS 68.5 % (42.8-82.8); PLATELET COUNT 215 K/MM3 (134-434); RDW 15.7 % (11.9-15.9)
[2016-09-03 06:16] LABS: ACTIVATED PTT 31.9 SECONDS (26.9-34.4)
[2016-09-03 06:31] LABS: INR 1.27 (0.82-1.09)
[2016-09-03 06:42] LABS: ALBUMIN 3.1 g/dl (3.4-5.0); ANION GAP 7 (8-16); CALCIUM 8.8 mg/dL (8.5-10.1); CO2 32 mmol/L (21-32); GLUCOSE,RANDOM 108 mg/dL (74-106); MAGNESIUM 2.4 mg/dL (1.8-2.4)
[2016-09-03 06:45] LABS: ALK PHOS 62 U/L (45-117); BILIRUBIN,TOTAL 0.2 mg/dL (0.2-1.0); CREATININE 0.5 mg/dL (0.7-1.3); PHOSPHOROUS 4.2 mg/dL (2.5-4.9); SGOT/AST 30 U/L (15-37); SGPT/ALT 18 U/L (12-78)
--- NOTE | 2016-09-03 08:04 | CON.CARD ---
Consult Consult Specialty:: Cardiology Referred by:: Dr. Phyllis Snider Reason for Consultation:: Reported atrial fibrillation, elevated troponin - History of Present Illness History of Present Illness: 86 yo male, with bladder cancer (x 20 years ago), s/p colon resection ( for "precancer"), COPD, multiple aspirations, recurrent C.diff colitis, NSTEMI ( 03/2016, in setting of resp distress and sepsis, medically managed -> hematuria with heparin, 04/18/16 Lexiscan nuclear without evidence of ischemia/infarct, LVEF 71%), bladder cancer, BPH, obstructive uropathy requiring chronic powers, and colon cancer s/p colon resection. Patient was recently hospitalized from - at [place] for SOB, nausea/vomiting, weakness, altered mental status, and found to be in severe hyponatremia. He was treated with fluid restriction and Tolvaptan. Patient presented to [place] ED yesterday with acute SOB and reported mental status changes per home health aide. In the ED, he was reportedly initially in sinus tachycardia -> reported rapid atrial fibrillation (but no rhythm strips were available to confirm this). First trop was 0.55. Patient was transferred to [facility] ICU after initial attempt to transfer to [place] was unsuccessful. Patient currently denies SOB/chest pain, but does report fatigue. Trops 0.55 -> 1.08 -> 0.67 (this AM) Patient was last seen in the office by Dr. Thornton on 04/21/16. 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 Randy Thornton Urologist: Dr. Vera ([place]) - History Source History Provided By: Patient Limitations to Obtaining History: No Limitations - Past Medical History Cardio/Vascular: Yes: CHF, PR (NSTEMI 03/2016 in setting or respiratory distress /sepsis), Other (NSTEMI) Pulmonary: Yes: COPD, Other (multiple aspirations) Gastrointestinal: Yes: Other (Recurrent C-diff colitis) Renal/: Yes: BPH, Hematuria, Other (Obstructive uropathy with chronic powers) Infectious Disease: Yes: C-Diff - Past Surgical History Additional Surgical History: Colon resection for "precancer" (details not available) - Alcohol/Substance Use Hx Alcohol Use: No - Smoking History Smoking history: Former smoker Have you smoked in the past 12 months: No Aproximately how many cigarettes per day: 20 If you are a former smoker, when did you quit?: 1978 - Social History Usual Living Arrangement: Other (with [facility]) Home Medications - Allergies Allergies/Adverse Reactions: Allergies Allergy/AdvReac Type Severity Reaction Status Date / Time albuterol AdvReac Verified 09/02/16 13:35 - Home Medications Home Medications: Ambulatory Orders Acetaminophen [Tylenol] 650 mg PO Q6H PRN 09/02/16 Aspirin [ASA -] 81 mg PO DAILY 09/02/16 Beclomethasone Dipropionate [Qnasl] 0 mcg NS DAILY 09/02/16 Budesonide [Pulmicort 0.5 mg Nebulizer -] 1 neb PO BID 09/02/16 Cranberry Conc/Ascorbic Acid [Cranberry Concentrate Softgel] 1 each PO DAILY 06/20 Dextran 70/Hypromellose [Artificial Tears] 1 each OP TID 09/02/16 Escitalopram Oxalate [Lexapro -] 5 mg PO DAILY 09/02/16 Finasteride [Proscar -] 5 mg PO DAILY 09/02/16 Flaxseed/Omega3,6,9/Fatty Acid [Flax Seed Oil 1,300 mg Softgel] 1 each PO DAILY 09/02/16 Levalbuterol Tartrate [Levalbuterol Tartrate Hfa] 15 gm IH Q6H 09/02/16 Metronidazole [Flagyl -] 500 mg PO DAILY 09/02/16 Miconazole Nitrate [Zeasorb-AF] 1 applic TP BID 09/02/16 Multivitamins [Tab-A-Vit -] 1 tab PO DAILY 09/02/16 Sodium Chloride Tablet - 1 gm PO TID 09/02/16 Umeclidinium Brm/Vilanterol Tr [Anoro Ellipta 62.5-25 Mcg INH] 1 each IH DAILY 09/02/16 Vancomycin HCl [Vancocin HCl] 250 mg PO Q6H 09/02/16 Family Disease History - Family Disease History Family Disease History: Heart Disease: Mother (CAD), CA: Father Review of Systems - Review of Systems Constitutional: reports: Lethargy, Malaise. denies: Fever Eyes: reports: No Symptoms HENT: reports: No Symptoms Neck: reports: No Symptoms Cardiovascular: denies: Chest Pain, Palpitations, Shortness of Breath Respiratory: reports: No Symptoms Gastrointestinal: reports: No Symptoms Genitourinary: reports: Hematuria Neurological: reports: Weakness (generalized) Hematology/Lymphatic: reports: No Symptoms Vital Signs: Vital Signs Temperature 99.2 F 09/03/16 06:00 Pulse Rate 96 H 09/03/16 06:00 Respiratory Rate 23 09/03/16 06:00 Blood Pressure 123/82 09/03/16 06:00 O2 Sat by Pulse Oximetry (%) 96 09/02/16 21:00 Constitutional: Yes: No Distress Eyes: Yes: Conjunctiva Clear, EOM Intact HENT: Yes: Atraumatic, Normocephalic Respiratory: Yes: CTA Bilaterally Gastrointestinal: Yes: Normal Bowel Sounds, Soft. No: Tenderness Cardiovascular: Yes: Regular Rate and Rhythm JVD: No Carotid Bruit: No PMI: Non-Displaced Heart Sounds: Yes: S1, S2 Murmur: No: Systolic Murmur Edema: No Peripheral Pulses WNL: Yes Neurological: Yes: Alert, Oriented Psychiatric: Yes: WNL - Other Data Labs, Other Data: CBC, BMP 09/03/16 05:00 09/03/16 05:00 INR, PTT INR 1.27 (0.82-1.09) H 09/03/16 05:00 Troponin, BNP 09/02/16 09/02/16 09/03/16 18:45 18:45 00:45 Troponin I 1.08 H* D Cancelled 0.84 H* 09/03/16 05:00 Troponin I 0.67 H* Troponin, BNP 09/02/16 09/02/16 09/03/16 18:45 18:45 00:45 Troponin I 1.08 H* D Cancelled 0.84 H* 09/03/16 05:00 Troponin I 0.67 H* 09/02/16 ECG: Sinus with PACs, RSR' pattern in V1 Echo: Report Reviewed (03/28/16 Echo: Technically limited study. Normal LV size and systolic function. Possible impaired LV relaxation. Mild AV sclerosis.) Imaging - Results Other: Report Reviewed (04/18/16 Lexiscan sestamibi: No ischemia/infarct with normal wall motion, LVEF 71%.) Assessment/Plan 86 yo male, with bladder cancer (x 20 years ago), s/p colon resection ( for "precancer"), COPD, multiple aspirations, recurrent C.diff colitis, NSTEMI ( 03/2016, in setting of resp distress and sepsis, medically managed -> hematuria with heparin, 04/18/16 Lexiscan nuclear without evidence of ischemia/infarct, LVEF 71%), bladder cancer, BPH, obstructive uropathy requiring chronic powers, and colon cancer s/p colon resection. Patient was recently hospitalized from 08/24- at [place] for SOB, nausea/ vomiting, weakness, altered mental status, and found to be in severe hyponatremia. He was treated with fluid restriction and Tolvaptan. Patient presented to [place] ED yesterday with acute SOB and reported mental status changes per home health aide. In the ED, he was initially in sinus tachycardia -> reported rapid atrial fibrillation (but no rhythm strips were available to confirm this). Patient was transferred to [facility] ICU, but was noted to be sinus rhythm at that time. Trops 0.55 -> 1.08 -> 0.67 (this AM) BNP 6318 CXR - no effusions or pulmonary vascular congestion Cardiology was consulted for reported new onset atrial fibrillation (no documented rhythm to confirm this diagnosis) and NSTEMI. Patient currently denies SOB/chest pain, but does report fatigue. Currently being treated for hypercarbic resp failure due to COPD exacerbation. RECS: As patient is currently without chest pain or dyspnea, and only mild troponin elevation, will treat conservatively with non-invasive medical management with regard to NSTEMI. Will continue aspirin, but given hematuria will defer anticoagulation. Given patient's h/o COPD, he has not been on beta-nolberto therapy due to concerns for bronchospasm. Although patient with elevated BNP, he does not appear to be in grossly volume overloaded. Would refrain from diuresis as he does not appear to be in CHF per physical exam and CXR. Will continue to follow. Please call with questions. No further cardiac studies are needed at this time. 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
[2016-09-03] MEDS ORDERED: PT OWN MED DRAWER 7, Y5N ONE ×3 (09:06→22:15)
--- NOTE | 2016-09-03 09:15 | PN ---
Progress Note (short form) - Note Progress Note: Patient seen and examined in the ICU. Awake and alert. Currently on NC O2. Denies CP or SOB. No BM since yesterday, which apparently was formed. No fever and WBC is normal. Intake & Output 08/31/16 09/01/16 09/02/16 09/03/16 23:59 23:59 23:59 23:59 Intake Total 225 Output Total 500 200 Balance -275 -200 Weight 185 lb Last Vital Signs Temp Pulse Resp BP Pulse Ox 99.2 F 86 21 103/50 96 09/03/16 06:00 09/03/16 08:00 09/03/16 08:00 09/03/16 08:00 09/02/16 21:00 Active Medications Acetaminophen (Tylenol -) 650 mg PO Q6H PRN PRN Reason: PAIN Artificial Tears (Artificial Tears) 1 drop OU TID [facility] Last Admin: 09/03/16 05:51 Dose: 1 drop Aspirin (Asa -) 81 mg PO DAILY [facility] Last Admin: 09/02/16 18:30 Dose: Not Given Chlorhexidine Gluconate (Hibiclens For Decolonization -) 1 applic TP HS [facility] Last Admin: 09/02/16 22:29 Dose: 1 applic Escitalopram Oxalate (Lexapro -) 5 mg PO DAILY [facility] Last Admin: 09/02/16 21:53 Dose: 5 mg Finasteride (Proscar -) 5 mg PO DAILY [facility] Last Admin: 09/02/16 21:54 Dose: 5 mg Ipratropium [place] (Atrovent 0.02% Nebulizer -) 1 amp NEB Q1H PRN PRN Reason: WHEEZING Last Admin: 09/02/16 12:35 Dose: 1 amp Ipratropium [place] (Atrovent 0.02% Nebulizer -) 1 amp NEB Q1H PRN PRN Reason: WHEEZING Metronidazole (Flagyl -) 500 mg PO DAILY [facility] Mupirocin (Bactroban Ointment (For Decolonization) -) 1 applic NS BID [facility] Stop: 09/07/16 21:59 Last Admin: 09/02/16 21:54 Dose: 1 applic Sodium Chloride (Sodium Chloride Tablet -) 1 gm PO TID [facility] Last Admin: 09/03/16 05:51 Dose: 1 gm Vancomycin HCl (Vancomycin Oral Solution) 250 mg PO Q6H [facility] Last Admin: 09/03/16 05:51 Dose: 250 mg Constitutional: Yes: Awake and alert, NAD Eyes: Yes: Conjunctiva Clear HENT: Yes: Atraumatic, Normocephalic Neck: Yes: WNL Cardiovascular: Yes: Regular Rate and Rhythm Respiratory: Yes: Regular, Diminished, On Nasal O2 Gastrointestinal: Yes: Normal Bowel Sounds, Soft, Other (non tender) Renal/: Yes: Sepulveda Present Extremities: Yes: WNL, Other (Ecchymoses) Edema: LUE: Trace Integumentary: Yes: Bruising (LUE) Neurological: Yes: Alert (Awake and oriented x3) Labs: Laboratory Results - last 24 hr 09/02/16 09/02/16 09/02/16 12:25 12:35 12:35 WBC 17.3 H D RBC 4.16 Hgb 13.7 Hct 41.1 MCV 98.7 H MCHC 33.4 RDW 15.2 D Plt Count 312 MPV 7.7 Neutrophils % 49.4 D Lymphocytes % 45.4 H D Monocytes % 3.9 Eosinophils % 0.8 D Basophils % 0.5 INR 1.16 PTT (Actin FS) 30.4 Anticoagulation Therapy Puncture Site ABG pH ABG pCO2 at Pt Temp ABG pO2 at Pt Temp ABG HCO3 ABG O2 Sat (Measured) ABG O2 Content ABG Base Excess [place] Test VBG pH 7.18 L* D POC VBG pCO2 80.9 H* POC VBG pO2 32.1 Mixed VBG HCO3 29.1 H O2 Delivery Device Oxygen Flow Rate Vent Mode Vent Rate Mechanical Rate Pressure Support Vent Sodium Potassium Chloride Carbon Dioxide Anion Gap BUN Creatinine Creat Clearance w eGFR Random Glucose Lactic Acid Calcium Phosphorus Magnesium Total Bilirubin AST ALT Alkaline Phosphatase Creatine Kinase Troponin I B-Natriuretic Peptide Total Protein Albumin Urine Color Urine Appearance Urine pH Ur Specific [place] Urine Protein Urine Glucose (UA) Urine Ketones Urine Blood Urine Nitrite Urine Bilirubin Urine Urobilinogen Ur Leukocyte Esterase Urine RBC Urine WBC Ur Epithelial Cells Calcium Oxalate Crystal Urine Bacteria 09/02/16 09/02/16 09/02/16 12:35 12:35 12:35 WBC RBC Hgb Hct MCV MCHC RDW Plt Count MPV Neutrophils % Lymphocytes % Monocytes % Eosinophils % Basophils % INR PTT (Actin FS) Anticoagulation Therapy Puncture Site ABG pH ABG pCO2 at Pt Temp ABG pO2 at Pt Temp ABG HCO3 ABG O2 Sat (Measured) ABG O2 Content ABG Base Excess Sanford Test VBG pH POC VBG pCO2 POC VBG pO2 Mixed VBG HCO3 O2 Delivery Device Oxygen Flow Rate Vent Mode Vent Rate Mechanical Rate Pressure Support Vent Sodium 136 Potassium 4.6 Chloride 99 Carbon Dioxide 29 H D Anion Gap 8 BUN 25 H D Creatinine 0.6 D Creat Clearance w eGFR > 60 Random Glucose 297 H D Lactic Acid 3.978 H* Calcium 9.1 Phosphorus Magnesium Total Bilirubin 0.4 D AST 60 H D ALT 14 Alkaline Phosphatase 70 D Creatine Kinase Troponin I B-Natriuretic Peptide 6318.82 H Total Protein 6.3 L Albumin 3.6 Urine Color Urine Appearance Urine pH Ur Specific [place] Urine Protein Urine Glucose (UA) Urine Ketones Urine Blood Urine Nitrite Urine Bilirubin Urine Urobilinogen Ur Leukocyte Esterase Urine RBC Urine WBC Ur Epithelial Cells Calcium Oxalate Crystal Urine Bacteria 09/02/16 09/02/16 09/02/16 12:35 13:00 13:34 WBC RBC Hgb Hct MCV MCHC RDW Plt Count MPV Neutrophils % Lymphocytes % Monocytes % Eosinophils % Basophils % INR PTT (Actin FS) Anticoagulation Therapy Y Puncture Site Right radial ABG pH 7.33 L ABG pCO2 at Pt Temp 53.0 H D ABG pO2 at Pt Temp 96.2 ABG HCO3 27.2 H ABG O2 Sat (Measured) 97.0 ABG O2 Content 16.2 ABG Base Excess 1.0 [place] Test Positive VBG pH POC VBG pCO2 POC VBG pO2 Mixed VBG HCO3 O2 Delivery Device Bipap 10/5 Oxygen Flow Rate 40% Vent Mode S/t Vent Rate 12 Mechanical Rate Y Pressure Support Vent Y Sodium Potassium Chloride Carbon Dioxide Anion Gap BUN Creatinine Creat Clearance w eGFR Random Glucose Lactic Acid Calcium Phosphorus Magnesium Total Bilirubin AST ALT Alkaline Phosphatase Creatine Kinase 51 Troponin I 0.55 H* D B-Natriuretic Peptide Total Protein Albumin Urine Color [place] Urine Appearance Cloudy Urine pH 6.0 Ur Specific [place] 1.025 Urine Protein 2+ H Urine Glucose (UA) Negative Urine Ketones Negative Urine Blood 3+ H Urine Nitrite Negative Urine Bilirubin Negative Urine Urobilinogen 0.2 e.u/dl Ur Leukocyte Esterase Trace Urine RBC >100 Urine WBC 5-10 Ur Epithelial Cells Rare Calcium Oxalate Crystal Few Urine Bacteria Rare 04/01/17 04/01/17 04/01/17 15:06 18:45 18:45 WBC RBC Hgb Hct MCV MCHC RDW Plt Count MPV Neutrophils % Lymphocytes % Monocytes % Eosinophils % Basophils % INR PTT (Actin FS) Anticoagulation Therapy Puncture Site ABG pH ABG pCO2 at Pt Temp ABG pO2 at Pt Temp ABG HCO3 ABG O2 Sat (Measured) ABG O2 Content ABG Base Excess [place] Test VBG pH POC VBG pCO2 POC VBG pO2 Mixed VBG HCO3 O2 Delivery Device Oxygen Flow Rate Vent Mode Vent Rate Mechanical Rate Pressure Support Vent Sodium Potassium Chloride Carbon Dioxide Anion Gap BUN Creatinine Creat Clearance w eGFR Random Glucose Lactic Acid 1.621 Calcium Phosphorus Magnesium Total Bilirubin AST ALT Alkaline Phosphatase Creatine Kinase 75 Troponin I 1.08 H* D Cancelled B-Natriuretic Peptide Total Protein Albumin Urine Color Urine Appearance Urine pH Ur Specific [place] Urine Protein Urine Glucose (UA) Urine Ketones Urine Blood Urine Nitrite Urine Bilirubin Urine Urobilinogen Ur Leukocyte Esterase Urine RBC Urine WBC Ur Epithelial Cells Calcium Oxalate Crystal Urine Bacteria 09/03/16 09/03/16 09/03/16 00:45 05:00 05:00 WBC 10.0 RBC 3.55 L Hgb 11.7 Hct 34.9 L MCV 98.4 H MCHC 33.5 RDW 15.7 D Plt Count 215 MPV 7.6 Neutrophils % 68.5 D Lymphocytes % 24.0 D Monocytes % 7.3 D Eosinophils % 0.0 Basophils % 0.2 D INR 1.27 H PTT (Actin FS) 31.9 Anticoagulation Therapy Puncture Site ABG pH ABG pCO2 at Pt Temp ABG pO2 at Pt Temp ABG HCO3 ABG O2 Sat (Measured) ABG O2 Content ABG Base Excess [place] Test VBG pH POC VBG pCO2 POC VBG pO2 Mixed VBG HCO3 O2 Delivery Device Oxygen Flow Rate Vent Mode Vent Rate Mechanical Rate Pressure Support Vent Sodium Potassium Chloride Carbon Dioxide Anion Gap BUN Creatinine Creat Clearance w eGFR Random Glucose Lactic Acid Calcium Phosphorus Magnesium Total Bilirubin AST ALT Alkaline Phosphatase Creatine Kinase Troponin I 0.84 H* B-Natriuretic Peptide Total Protein Albumin Urine Color Urine Appearance Urine pH Ur Specific [place] Urine Protein Urine Glucose (UA) Urine Ketones Urine Blood Urine Nitrite Urine Bilirubin Urine Urobilinogen Ur Leukocyte Esterase Urine RBC Urine WBC Ur Epithelial Cells Calcium Oxalate Crystal Urine Bacteria 09/03/16 09/03/16 05:00 05:00 WBC RBC Hgb Hct MCV MCHC RDW Plt Count MPV Neutrophils % Lymphocytes % Monocytes % Eosinophils % Basophils % INR PTT (Actin FS) Anticoagulation Therapy Puncture Site ABG pH ABG pCO2 at Pt Temp ABG pO2 at Pt Temp ABG HCO3 ABG O2 Sat (Measured) ABG O2 Content ABG Base Excess [place] Test VBG pH POC VBG pCO2 POC VBG pO2 Mixed VBG HCO3 O2 Delivery Device Oxygen Flow Rate Vent Mode Vent Rate Mechanical Rate Pressure Support Vent Sodium 140 Potassium 4.9 Chloride 101 Carbon Dioxide 32 Anion Gap 7 L BUN 32 H D Creatinine 0.5 L D Creat Clearance w eGFR > 60 Random Glucose 108 H D Lactic Acid Calcium 8.8 Phosphorus 4.2 D Magnesium 2.4 Total Bilirubin 0.2 D AST 30 D ALT 18 D Alkaline Phosphatase 62 D Creatine Kinase Troponin I 0.67 H* B-Natriuretic Peptide Total Protein 6.0 L Albumin 3.1 L Urine Color Urine Appearance Urine pH Ur Specific [place] Urine Protein Urine Glucose (UA) Urine Ketones Urine Blood Urine Nitrite Urine Bilirubin Urine Urobilinogen Ur Leukocyte Esterase Urine RBC Urine WBC Ur Epithelial Cells Calcium Oxalate Crystal Urine Bacteria Problem List - Problems (1) COPD with exacerbation Code(s): J44.1 - CHRONIC OBSTRUCTIVE PULMONARY DISEASE W (ACUTE) EXACERBATION (2) Acute kidney injury Code(s): N17.9 - ACUTE KIDNEY FAILURE, UNSPECIFIED (3) NSTEMI (non-ST elevated myocardial infarction) Code(s): I21.4 - NON-ST ELEVATION (NSTEMI) MYOCARDIAL INFARCTION Assessment/Plan O2 as needed Follow H&H Normal transfusion thresholds Spoke to niece -> discharged on Flagyl TID and Vanco QID ASA NIPPV PRN I&O BD TX PRN Short course of Medrol ABG if lethargic PO as tolerated Dr Borges CCTime 35"
[2016-09-03] MEDS: ASPIRIN 81 MG CHEWABLE TABLETS PO SCH (09:16)
[2016-09-03] MEDS: ESCITALOPRAM OXALATE 10 MG TABLET (FP) PO SCH (09:17)
[2016-09-03] MEDS: FINASTERIDE 5 MG TABLET (FP) PO SCH (09:18)
[2016-09-03] MEDS: MUPIROCIN 2% TOPICAL OINTMENT FOR DECOLONIZATION NS SCH (09:19)
[2016-09-03] MEDS ORDERED: IPRATROPIUM BR 0.02% 0.5 MG/2.5 ML VIAL.NEB. NEB PRN (09:22)
[2016-09-03] MEDS: methylPREDNISolone NA SUCC 40 MG/1 ML VIAL IVPB SCH ×2 (09:32→22:00)
[2016-09-03] MEDS ORDERED: ENOXAPARIN NA (PORCINE) 40 MG/0.4 ML DISP.SYRIN SQ SCH (10:00)
[2016-09-03] MEDS: ACETAMINOPHEN 325 MG TABLET (FP) PO PRN (11:13)
[2016-09-03] MEDS: metroNIDAZOLE 250 MG TABLET PO SCH ×2 (13:10→22:00)
--- NOTE | 2016-09-03 14:43 | PN ---
Physical Exam: SUBJECTIVE: Patient seen and examined at bedside in ICU. OBJECTIVE: Vital Signs Period Temp Pulse Resp BP Sys/Martel Pulse Ox Last 24 Hr 98.6 F-99.2 F 82-99 16-26 103-126/50-88 94-96 GENERAL: Awake, alert. Oriented. Weak appearing. HEAD: Normal with no signs of trauma. EYES: Pupils equal, round and reactive to light, extraocular movements intact, sclera anicteric, conjunctiva clear. No lid lag. LUNGS: Diffuse wheezing, rhochi. No accessory muscle use. HEART: Regular rate and rhythm, normal S1 and S2 without murmur, rub or gallop. ABDOMEN: Soft, nontender, not distended, normoactive bowel sounds, no guarding, no rebound, no masses. MUSCULOSKELETAL: Normal range of motion at all joints. No bony deformities or tenderness. No CVA tenderness. UPPER EXTREMITIES: 2+ pulses, warm, well-perfused. No cyanosis. No clubbing. No peripheral edema. LOWER EXTREMITIES: 2+ pulses, warm, well-perfused. No calf tenderness. No peripheral edema. NEUROLOGICAL: Cranial nerves II-XII intact. Normal speech. Gait not observed. Laboratory Results - last 24 hr 09/02/16 09/02/16 09/03/16 18:45 18:45 00:45 WBC RBC Hgb Hct MCV MCHC RDW Plt Count MPV Neutrophils % Lymphocytes % Monocytes % Eosinophils % Basophils % INR PTT (Actin FS) Sodium Potassium Chloride Carbon Dioxide Anion Gap BUN Creatinine Creat Clearance w eGFR Random Glucose Calcium Phosphorus Magnesium Total Bilirubin AST ALT Alkaline Phosphatase Creatine Kinase 75 Troponin I 1.08 H* D Cancelled 0.84 H* Total Protein Albumin 09/03/16 09/03/16 09/03/16 05:00 05:00 05:00 WBC 10.0 RBC 3.55 L Hgb 11.7 Hct 34.9 L MCV 98.4 H MCHC 33.5 RDW 15.7 D Plt Count 215 MPV 7.6 Neutrophils % 68.5 D Lymphocytes % 24.0 D Monocytes % 7.3 D Eosinophils % 0.0 Basophils % 0.2 D INR 1.27 H PTT (Actin FS) 31.9 Sodium 140 Potassium 4.9 Chloride 101 Carbon Dioxide 32 Anion Gap 7 L BUN 32 H D Creatinine 0.5 L D Creat Clearance w eGFR > 60 Random Glucose 108 H D Calcium 8.8 Phosphorus 4.2 D Magnesium 2.4 Total Bilirubin 0.2 D AST 30 D ALT 18 D Alkaline Phosphatase 62 D Creatine Kinase Troponin I Total Protein 6.0 L Albumin 3.1 L 09/03/16 05:00 WBC RBC Hgb Hct MCV MCHC RDW Plt Count MPV Neutrophils % Lymphocytes % Monocytes % Eosinophils % Basophils % INR PTT (Actin FS) Sodium Potassium Chloride Carbon Dioxide Anion Gap BUN Creatinine Creat Clearance w eGFR Random Glucose Calcium Phosphorus Magnesium Total Bilirubin AST ALT Alkaline Phosphatase Creatine Kinase Troponin I 0.67 H* Total Protein Albumin Active Medications Generic Name Dose Route Start Last Admin Trade Name Freq PRN Reason Stop Dose Admin Acetaminophen 650 mg 09/02/16 18:25 09/03/16 11:13 Tylenol - PO 650 mg Q6H PRN Administration PAIN Artificial Tears 1 drop 09/02/16 22:00 09/03/16 13:14 Artificial Tears OU 1 drop TID [facility] Administration Aspirin 81 mg 09/02/16 18:30 09/03/16 09:16 Asa - PO 81 mg DAILY [facility] Administration Chlorhexidine Gluconate 1 applic 09/02/16 22:00 09/02/16 22:29 Hibiclens For Decolonization - TP 1 applic HS [facility] Administration Escitalopram Oxalate 5 mg 09/02/16 21:45 09/03/16 09:17 Lexapro - PO 5 mg DAILY [facility] Administration Finasteride 5 mg 09/02/16 18:30 09/03/16 09:18 Proscar - PO 5 mg DAILY [facility] Administration Ipratropium [place] 1 amp 09/03/16 09:22 Atrovent 0.02% Nebulizer - NEB 09/10/16 09:23 Q6H PRN DYSPEPSIA Methylprednisolone Sodium Succinate 40 mg 09/03/16 10:00 09/03/16 09:32 Solu-Medrol - IVPB 40 mg BID [facility] Administration Metronidazole 500 mg 09/03/16 14:00 09/03/16 13:10 Flagyl - PO 500 mg TID [facility] Administration Mupirocin 1 applic 09/02/16 22:00 09/03/16 09:19 Bactroban Ointment (For Decolonization) - NS 09/07/16 21:59 1 applic BID [facility] Administration Sodium Chloride 1 gm 09/02/16 22:00 09/03/16 13:15 Sodium Chloride Tablet - PO 1 gm TID [facility] Administration Vancomycin HCl 250 mg 09/02/16 18:30 09/03/16 13:10 Vancomycin Oral Solution PO 250 mg Q6H [facility] Administration ASSESSMENT/PLAN 86 year-old male with a significant PMH of COPD with multiple aspirations, recurrent c.diff colitis, bladder cancer, BPH, obstructive uropathy, colon cancer s/p colon resection, diastolic heart failure, NSTEMI, and SIADH hyponatremia. Admitted for acute onset SOB and mental status changes. Acute hypercarbic respiratory failure likely secondary to COPD exacerbation, aspiration --mental status waxes and wanes --oxygenation requirements have improved, off BIPAP, satting 94% on 2L NC --BIPAP PRN Lactic acidosis --resolved Diastolic heart failure, chronic --03/28/16 Echo: LV normal, impaired relaxation; RV normal; no acute valvular pathology --stop IV fluids as patient is hemodynamically stable at this time --no diuresis for now NSTEMI --troponin 0.55-->1.08-->0.84-->0.67 --previous NSTEMI in 2015 in similar circumstances following an acute hypoxic event --continue home dose ASA, will not fully anticoagulate given likely this is demand ischemia plus patient with hematuria; discussed with Dr. Mora who concurs New onset afib with RVR --arrived to ED in sinus tach, brief period of afib to 112, converted back and remains in SR --hemodynamically stable Bladder cancer Gross hematuria, resolving BPH --dark brenda urine today --has had chronic powers since 03/2016; had Greenlight procedure in 04/2016 but not successful in relieving obstruction --current powers was placed about 3 weeks ago; urine has been clear prior to today --strict I&Os h/o SIADH hyponatremia --was started on salt tabs 2 days ago when discharged from [place] with strict fluid restrictions --Na 136 on admission --fluid restrict --renal consult Colon cancer --no acute issues Recurrent C.diff colitis --continue PO vanc and flagyl --c.diff stool collected and sent BPH --continue Proscar F/E/N Fluids: PO intake adequate Electrolytes: replete as indicated Nutrition: dysphagia puree, honey thick, Ensure DVT prophylaxis: no chemical prophylaxis due to hematuria; oob, ambulation PT evaluation/daily PT Dispo: continues to require ICU level care. DNR/DNI signed by HCP Carli Reese. Visit type - Emergency Visit Emergency Visit: Yes ED Registration Date: 09/02/16 Care time: The patient presented to the Emergency Department on the above date and was hospitalized for further evaluation of their emergent condition. - New Patient This patient is new to me today: No - Critical Care Critical Care patient: Yes Total Critical Care Time (in minutes): 35 Critical Care Statement: The care of this patient involved high complexity decision making to prevent further life threatening deterioration of the patient 's condition and/or to evalute & treat vital organ system(s) failure or risk of failure.
--- NOTE | 2016-09-03 15:34 | CONSULT ---
Consult - text type - Consultation Consultation Note: Renal Consult for SIADH This is a 86 year old Gentleman with PMhx of COPD, Hx of Aspriation PNA, C. Diff Colitis, Diastolic HF, NSTEMI, BPH, Hx of Bladder Ca, Colon Ca s/p resection with recent admission at [place] for SIADH with severe hyponatremia ( no records in chart) and C. Diff colitis who presented to [place] ED with acute SOB and AMS and admitted for COPD Exacerbation and NSTEMI. Pt cannot recall dx of hyponatremia at [facility]. Denies being told to be on a water restriction. Is on salt tabs. does not drink too much water. Currently continues to feel sob but denies any chest pain, abd pain, N/V. Has been having at home. Has a soft stool. Pt is tolerating about half his diet as per nurse. PMhx: as above Allergies: Albuterol (tachycardia) Family Hx: Sister on dialysis Social Hx: Former smoker ROS: as per HPI, all other pertinent ros negative Home Meds: Home Medications Medication Instructions Recorded Acetaminophen [Tylenol] 650 mg PO Q6H PRN 09/02/16 Aspirin [ASA -] 81 mg PO DAILY 09/02/16 Beclomethasone Dipropionate [Qnasl] 0 mcg NS DAILY 09/02/16 Budesonide [Pulmicort 0.5 mg 1 neb PO BID 09/02/16 Nebulizer -] Cranberry Conc/Ascorbic Acid 1 each PO DAILY 09/02/16 [Cranberry Concentrate Softgel] Dextran 70/Hypromellose 1 each OP TID 09/02/16 [Artificial Tears] Escitalopram Oxalate [Lexapro -] 5 mg PO DAILY 09/02/16 Finasteride [Proscar -] 5 mg PO DAILY 09/02/16 Flaxseed/Omega3,6,9/Fatty Acid 1 each PO DAILY 09/02/16 [Flax Seed Oil 1,300 mg Softgel] Levalbuterol Tartrate 15 gm IH Q6H 09/02/16 [Levalbuterol Tartrate Hfa] Metronidazole [Flagyl -] 500 mg PO DAILY 09/02/16 Miconazole Nitrate [Zeasorb-AF] 1 applic TP BID 09/02/16 Multivitamins [Tab-A-Vit -] 1 tab PO DAILY 09/02/16 Sodium Chloride Tablet - 1 gm PO TID 09/02/16 Umeclidinium Brm/Vilanterol Tr 1 each IH DAILY 09/02/16 [Anoro Ellipta 62.5-25 Mcg INH] Vancomycin HCl [Vancocin HCl] 250 mg PO Q6H 09/02/16 Vital Signs Temperature 99 F 09/03/16 12:00 Pulse Rate 93 H 09/03/16 14:00 Respiratory Rate 26 H 09/03/16 14:00 Blood Pressure 114/88 09/03/16 14:00 O2 Sat by Pulse Oximetry (%) 94 L 09/03/16 10:00 Gen: NAD on NC HEENT: NC/AT, MMM, No JVD CVS: RRR, no M/R Lungs: Dec BS throughout the lung marin, no rales Abd: soft NT/ND Ext: No edema, clubbing or cyanosis : Sepulveda in palce Neuro:AAOx3, no focal defects CBC, BMP 09/03/16 05:00 09/03/16 05:00 Laboratory Tests 09/02/16 09/03/16 13:00 05:00 Calcium 8.8 Urine Protein 2+ H Urine Glucose (UA) Negative Urine Ketones Negative Urine Blood 3+ H Urine RBC >100 Urine WBC 5-10 Current Medications Acetaminophen (Tylenol -) 650 mg PO Q6H PRN PRN Reason: PAIN Last Admin: 09/03/16 11:13 Dose: 650 mg Artificial Tears (Artificial Tears) 1 drop OU TID [facility] Last Admin: 09/03/16 13:14 Dose: 1 drop Aspirin (Asa -) 81 mg PO DAILY [facility] Last Admin: 09/03/16 09:16 Dose: 81 mg Chlorhexidine Gluconate (Hibiclens For Decolonization -) 1 applic TP HS [facility] Last Admin: 09/02/16 22:29 Dose: 1 applic Escitalopram Oxalate (Lexapro -) 5 mg PO DAILY [facility] Last Admin: 09/03/16 09:17 Dose: 5 mg Finasteride (Proscar -) 5 mg PO DAILY [facility] Last Admin: 09/03/16 09:18 Dose: 5 mg Ipratropium [place] (Atrovent 0.02% Nebulizer -) 1 amp NEB Q6H PRN PRN Reason: DYSPEPSIA Stop: 04/09/17 09:23 Methylprednisolone Sodium Succinate (Solu-Medrol -) 40 mg IVPB BID [facility] Last Admin: 09/03/16 09:32 Dose: 40 mg Metronidazole (Flagyl -) 500 mg PO TID [facility] Last Admin: 09/03/16 13:10 Dose: 500 mg Mupirocin (Bactroban Ointment (For Decolonization) -) 1 applic NS BID [facility] Stop: 09/07/16 21:59 Last Admin: 09/03/16 09:19 Dose: 1 applic Sodium Chloride (Sodium Chloride Tablet -) 1 gm PO TID [facility] Last Admin: 09/03/16 13:15 Dose: 1 gm Vancomycin HCl (Vancomycin Oral Solution) 250 mg PO Q6H [facility] Last Admin: 09/03/16 13:10 Dose: 250 mg A/P 86 year old Gentleman with PMhx of COPD, Hx of Aspriation PNA, C. Diff Colitis , Diastolic HF, NSTEMI, BPH, Hx of Bladder Ca, Colon Ca s/p resection with recent admission at [place] for SIADH with severe hyponatremia (no records in chart) and C. Diff colitis who presented to [place] ED with acute SOB and AMS and admitted for COPD Exacerbation and NSTEMI. #SIADH Serum Na is now 140 No utility in performing OSM studies at this time continue NaCl 1 tab TID Fluid restriction of 1L daily Trend Daily Na no indication for Tolvaptan #COPD Exacerbation Continue Nebs and Inhaled steroids as per Pulmonary O2 as needed #SIRS/UTI F/u Cultures on Vanco PO w/o any other Abx WBC improved UA is suggestive of UTI, f/u cultures Abx as needed #NSTEMI/New Onset Afib Cardiology following On ASA #Hx of Cdiff coliits On Vanco PO no diarrhea today Thank you Will follow Wally Ramirez DO
[2016-09-04] MEDS: VANCOMYCIN 250 MG/5 ML ORAL SOLUTION PO SCH ×4 (00:09→18:22)
[2016-09-04] MEDS ORDERED: PT OWN MED DRAWER 7, Y5N ONE ×5 (06:16→21:43)
[2016-09-04 06:27] LABS: BASOPHIL 0.1 % (0-2.0); MCH 32.8 pg (25.7-33.7); MCHC 33.2 g/dl (32.0-35.9); MEAN CELL VOLUME 98.9 fl (80-96); MEAN PLT VOLUME 7.7 fl (7.5-11.1); NEUTROPHILS 75.6 % (42.8-82.8); PLATELET COUNT 192 K/MM3 (134-434); RDW 15.6 % (11.9-15.9); WHITE BLOOD COUNT 8.6 K/mm3 (4.0-10.0)
[2016-09-04] MEDS: ARTIFICIAL TEARS (POLYVINYL ALCOHOL 1.4%) OPTH DROPS OU SCH ×3 (06:28→22:50)
[2016-09-04] MEDS: SODIUM CHLORIDE 1 GM TABLET PO SCH ×3 (06:29→22:51)
[2016-09-04] MEDS: metroNIDAZOLE 250 MG TABLET PO SCH ×3 (06:29→22:50)
[2016-09-04 06:56] LABS: ANION GAP 9 (8-16); CALCIUM 8.8 mg/dL (8.5-10.1); CO2 31 mmol/L (21-32); GLUCOSE,RANDOM 132 mg/dL (74-106); MAGNESIUM 2.1 mg/dL (1.8-2.4)
[2016-09-04 07:01] LABS: ALK PHOS 54 U/L (45-117); BILIRUBIN,TOTAL 0.3 mg/dL (0.2-1.0); CREATININE 0.5 mg/dL (0.7-1.3); SGOT/AST 24 U/L (15-37); SGPT/ALT 18 U/L (12-78); TOT PROT 5.8 g/dl (6.4-8.2)
[2016-09-04] MEDS: ASPIRIN 81 MG CHEWABLE TABLETS PO SCH (09:44)
[2016-09-04] MEDS: ESCITALOPRAM OXALATE 10 MG TABLET (FP) PO SCH (09:45)
[2016-09-04] MEDS: methylPREDNISolone NA SUCC 40 MG/1 ML VIAL IVPB SCH ×2 (09:45→22:51)
[2016-09-04] MEDS: FINASTERIDE 5 MG TABLET (FP) PO SCH (09:46)
--- NOTE | 2016-09-04 12:53 | PN ---
Progress Note (short form) - Note Progress Note: Renal Follow up for SIADH Pt seen and examined at the bedside SOB is imporved eating well, no N/V/D no chest pain no swelling in LE Vital Signs Temperature 99.2 F 09/04/16 05:30 Pulse Rate 82 09/04/16 05:30 Respiratory Rate 20 09/04/16 05:30 Blood Pressure 119/54 09/04/16 05:30 O2 Sat by Pulse Oximetry (%) 94 L 09/03/16 21:00 Intake & Output 09/01/16 09/02/16 09/03/16 09/04/16 23:59 23:59 23:59 23:59 Intake Total 225 780 Output Total 500 800 250 Balance -275 -20 -250 Weight 185 lb Gen: NAD on NC CVS: RRR, no M/R Lungs: Dec BS throughout the lung marin, + wheeze Abd: soft NT/ND Ext: No edema, clubbing or cyanosis : Sepulveda in palce CBC, BMP 09/04/16 05:35 09/04/16 06:00 Current Medications Acetaminophen (Tylenol -) 650 mg PO Q6H PRN PRN Reason: PAIN Last Admin: 09/03/16 11:13 Dose: 650 mg Artificial Tears (Artificial Tears) 1 drop OU TID REPLACED BY [facility] Last Admin: 09/04/16 06:28 Dose: 1 drop Aspirin (Asa -) 81 mg PO DAILY [facility] Last Admin: 09/04/16 09:44 Dose: 81 mg Escitalopram Oxalate (Lexapro -) 5 mg PO DAILY [facility] Last Admin: 09/04/16 09:45 Dose: 5 mg Finasteride (Proscar -) 5 mg PO DAILY [facility] Last Admin: 09/04/16 09:46 Dose: 5 mg Ipratropium [place] (Atrovent 0.02% Nebulizer -) 1 amp NEB Q6H PRN PRN Reason: DYSPEPSIA Stop: 09/10/16 09:23 Methylprednisolone Sodium Succinate (Solu-Medrol -) 40 mg IVPB BID REPLACED BY [facility] Last Admin: 09/04/16 09:45 Dose: 40 mg Metronidazole (Flagyl -) 500 mg PO TID REPLACED BY [facility] Last Admin: 09/04/16 06:29 Dose: 500 mg Sodium Chloride (Sodium Chloride Tablet -) 1 gm PO TID [facility]PL[facility] Last Admin: 09/04/16 06:29 Dose: 1 gm Vancomycin HCl (Vancomycin Oral Solution) 250 mg PO Q6H [facility] Last Admin: 09/04/16 11:31 Dose: 250 mg A/P 86 year old Gentleman with PMhx of COPD, Hx of Aspriation PNA, C. Diff Colitis , Diastolic HF, NSTEMI, BPH, Hx of Bladder Ca, Colon Ca s/p resection with recent admission at [place] for SIADH with severe hyponatremia (no records in chart) and C. Diff colitis who presented to [place] ED with acute SOB and AMS and admitted for COPD Exacerbation and NSTEMI. #SIADH Serum na is stable continue salt tabs TID for now (no signs of volume overload or uncontrolled HTN) Trend Na Daily #COPD Exacerbation Continue Nebs and Inhaled steroids as per Pulmonary O2 as needed #SIRS/UTI pt grew gram negative in urine abx as per primary on PO Vanco for Cdiff #Elevated Troponin Trend as per Cardiology #Hx of Cdiff coliits On Vanco PO no diarrhea today Thank you Will follow Walyl Ramirez DO
--- NOTE | 2016-09-04 13:22 | PN ---
Progress Note, Physician History of Present Illness: pulmonary alert,feeling better,oob-chair,less dyspneic,o2 sat 94% on nasal o2 - Current Medication List Current Medications: Active Medications Acetaminophen (Tylenol -) 650 mg PO Q6H PRN PRN Reason: PAIN Last Admin: 09/03/16 11:13 Dose: 650 mg Artificial Tears (Artificial Tears) 1 drop OU TID [facility] Last Admin: 09/04/16 06:28 Dose: 1 drop Aspirin (Asa -) 81 mg PO DAILY [facility] Last Admin: 09/04/16 09:44 Dose: 81 mg Escitalopram Oxalate (Lexapro -) 5 mg PO DAILY [facility] Last Admin: 09/04/16 09:45 Dose: 5 mg Finasteride (Proscar -) 5 mg PO DAILY [facility] Last Admin: 09/04/16 09:46 Dose: 5 mg Ipratropium [place] (Atrovent 0.02% Nebulizer -) 1 amp NEB Q6H PRN PRN Reason: DYSPEPSIA Stop: 09/10/16 09:23 Methylprednisolone Sodium Succinate (Solu-Medrol -) 40 mg IVPB BID [facility] Last Admin: 09/04/16 09:45 Dose: 40 mg Metronidazole (Flagyl -) 500 mg PO TID [facility] Last Admin: 09/04/16 06:29 Dose: 500 mg Sodium Chloride (Sodium Chloride Tablet -) 1 gm PO TID [facility] Last Admin: 09/04/16 06:29 Dose: 1 gm Vancomycin HCl (Vancomycin Oral Solution) 250 mg PO Q6H [facility] Last Admin: 09/04/16 11:31 Dose: 250 mg - Objective Vital Signs: Vital Signs Temperature 99.2 F 09/04/16 05:30 Pulse Rate 82 09/04/16 05:30 Respiratory Rate 20 09/04/16 05:30 Blood Pressure 119/54 09/04/16 05:30 O2 Sat by Pulse Oximetry (%) 94 L 09/03/16 21:00 Constitutional: Yes: Calm, Thin Eyes: Yes: WNL HENT: Yes: WNL Neck: Yes: Supple Cardiovascular: Yes: Regular Rate and Rhythm, S1, S2 Respiratory: Yes: Diminished Gastrointestinal: Yes: Normal Bowel Sounds, Soft Extremities: Yes: WNL Edema: No Labs: CBC, BMP 09/04/16 05:35 09/04/16 06:00 INR, PTT INR 1.27 (0.82-1.09) H 09/03/16 05:00 Problem List - Problems (1) Acute hypercapnic respiratory failure Code(s): J96.02 - ACUTE RESPIRATORY FAILURE WITH HYPERCAPNIA Assessment/Plan Problem List - Problems (1) COPD with exacerbation Code(s): J44.1 - CHRONIC OBSTRUCTIVE PULMONARY DISEASE W (ACUTE) EXACERBATION (2) Acute kidney injury Code(s): N17.9 - ACUTE KIDNEY FAILURE, UNSPECIFIED (3) NSTEMI (non-ST elevated myocardial infarction) Code(s): I21.4 - NON-ST ELEVATION (NSTEMI) MYOCARDIAL INFARCTION Assessment/Plan O2 as needed Follow H&H ASA NIPPV PRN I&O BD TX PRN Medrol DR GR
--- NOTE | 2016-09-04 17:31 | PN ---
Progress Note, Physician History of Present Illness: No new events - Current Medication List Current Medications: Active Medications Acetaminophen (Tylenol -) 650 mg PO Q6H PRN PRN Reason: PAIN Last Admin: 09/03/16 11:13 Dose: 650 mg Artificial Tears (Artificial Tears) 1 drop OU TID [facility] Last Admin: 09/04/16 14:03 Dose: 1 drop Aspirin (Asa -) 81 mg PO DAILY [facility] Last Admin: 09/04/16 09:44 Dose: 81 mg Escitalopram Oxalate (Lexapro -) 5 mg PO DAILY [facility] Last Admin: 09/04/16 09:45 Dose: 5 mg Finasteride (Proscar -) 5 mg PO DAILY [facility] Last Admin: 09/04/16 09:46 Dose: [address] [place] [address] (Atrovent 0.02% Nebulizer -) 1 amp NEB Q6H PRN PRN Reason: DYSPEPSIA Stop: 09/10/16 09:23 Methylprednisolone Sodium Succinate (Solu-Medrol -) 40 mg IVPB BID [facility] Last Admin: 09/04/16 09:45 Dose: 40 mg Metronidazole (Flagyl -) 500 mg PO TID [facility] Last Admin: 09/04/16 14:04 Dose: 500 mg Patient's Own Medication(Anoro Inhaler) (Non- Formulary) 1 each IH DAILY [facility] Sodium Chloride (Sodium Chloride Tablet -) 1 gm PO TID [facility] Last Admin: 09/04/16 14:04 Dose: 1 gm Vancomycin HCl (Vancomycin Oral Solution) 250 mg PO Q6H [facility] Last Admin: 09/04/16 11:31 Dose: 250 mg - Objective Vital Signs: Vital Signs Temperature 98.1 F 09/04/16 14:46 Pulse Rate 81 09/04/16 14:46 Respiratory Rate 18 09/04/16 14:46 Blood Pressure 118/55 09/04/16 14:46 O2 Sat by Pulse Oximetry (%) 95 09/04/16 09:00 Constitutional: Yes: No Distress Eyes: Yes: Conjunctiva Clear HENT: Yes: Atraumatic Neck: Yes: Supple Cardiovascular: Yes: Regular Rate and Rhythm (with ectopy) Respiratory: No: Rales, Rhonchi, Wheezes Gastrointestinal: Yes: Normal Bowel Sounds, Soft, Abdomen, Obese Edema: No Peripheral Pulses WNL: Yes Neurological: Yes: Alert Labs: CBC, BMP 09/04/16 05:35 09/04/16 06:00 INR, PTT INR 1.27 (0.82-1.09) H 09/03/16 05:00 - ....Imaging Other: Other (tele -. SR, APCs, short runs of ? AT) Assessment/Plan 86 yo male, with bladder cancer (x 20 years ago), s/p colon resection ( for "precancer"), COPD, multiple aspirations, recurrent C.diff colitis, NSTEMI ( 03/2016, in setting of resp distress and sepsis, medically managed -> hematuria with heparin, 04/18/16 Lexiscan nuclear without evidence of ischemia/infarct, LVEF 71%), bladder cancer, BPH, obstructive uropathy requiring chronic powers, and colon cancer s/p colon resection. Patient was recently hospitalized from 08/24- at [facility] for SOB, nausea/ vomiting, weakness, altered mental status, and found to be in severe hyponatremia. He was treated with fluid restriction and Tolvaptan. Patient presented to [place] ED yesterday with acute SOB and reported mental status changes per home health aide. In the ED, he was initially in sinus tachycardia -> reported rapid atrial fibrillation (but no rhythm strips were available to confirm this). Patient was transferred to [facility] ICU, but was noted to be sinus rhythm at that time. Trops 0.55 -> 1.08 -> 0.67 BNP 6318 CXR - no effusions or pulmonary vascular congestion Cardiology was consulted for reported new onset atrial fibrillation (no documented rhythm to confirm this diagnosis) and NSTEMI. Patient continues to deny SOB/chest pain Currently being treated for hypercarbic resp failure due to COPD exacerbation. Tele -. shows APCs, ? AT, no clear afib Overall HR ok RECS: Continue medical management with regard to NSTEMI. Will continue aspirin, but defer anticoagulation. Given patient's h/o COPD, he has not been on beta-nolberto therapy due to concerns for bronchospasm. Although patient with elevated BNP, he does not appear to be in grossly volume overloaded -. no diuresis No further cardiac studies are needed at this time. Further recs as per primary team
--- NOTE | 2016-09-04 18:02 | EKG ---
Test Reason : Blood Pressure : / mmHG Vent. Rate : 113 BPM Atrial Rate : 107 BPM P-R Int : 000 ms QRS Dur : 100 ms QT Int : 352 ms P-R-T Axes : 000 027 048 degrees QTc Int : 482 ms Poor baseline ? SR with APCs LOW VOLTAGE QRS INCOMPLETE RIGHT BUNDLE BRANCH BLOCK NONSPECIFIC T WAVE ABNORMALITY WHEN COMPARED WITH ECG OF 02-SEP-2016 12:34, APCs new Confirmed by MD EMORY, AMADOU ([id number]) on 09/04/2016 6:02:30 PM Referred By: PRAVEEN KIM Confirmed By:AMADOU CAT MD
[2016-09-04] MEDS: ANORO IH SCH (18:22)
--- NOTE | 2016-09-04 21:52 | PN ---
Physical Exam: SUBJECTIVE: Patient seen and examined at bedside. OBJECTIVE: Vital Signs Period Temp Pulse Resp BP Sys/Martel Pulse Ox Last 24 Hr 97.4 F-99.2 F 81-85 18-20 115-122/54-71 95-95 GENERAL: Awake, alert. oriented x 3; conversational HEAD: Normal with no signs of trauma. EYES: Pupils equal, round and reactive to light, extraocular movements intact, sclera anicteric, conjunctiva clear. No lid lag. LUNGS: Diminished breath sounds, wheezing HEART: Regular rate and rhythm, normal S1 and S2 without murmur, rub or gallop. ABDOMEN: Soft, nontender, not distended, normoactive bowel sounds, no guarding, no rebound, no masses. MUSCULOSKELETAL: Normal range of motion at all joints. No bony deformities or tenderness. No CVA tenderness. UPPER EXTREMITIES: 2+ pulses, warm, well-perfused. No cyanosis. No clubbing. No peripheral edema. LOWER EXTREMITIES: 2+ pulses, warm, well-perfused. No calf tenderness. No peripheral edema. NEUROLOGICAL: Cranial nerves II-XII intact. Normal speech. Gait not observed. : powers draining dark brenda urine Laboratory Results - last 24 hr 09/04/16 09/04/16 05:35 06:00 WBC 8.6 RBC 3.50 L Hgb 11.5 L Hct 34.6 L MCV 98.9 H MCHC 33.2 RDW 15.6 Plt Count 192 MPV 7.7 Neutrophils % 75.6 Lymphocytes % 20.3 Monocytes % 4.0 Eosinophils % 0.0 Basophils % 0.1 Sodium 140 Potassium 4.7 Chloride 100 Carbon Dioxide 31 Anion Gap 9 BUN 31 H Creatinine 0.5 L Creat Clearance w eGFR > 60 Random Glucose 132 H D Calcium 8.8 Magnesium 2.1 Total Bilirubin 0.3 D AST 24 ALT 18 Alkaline Phosphatase 54 Total Protein 5.8 L Albumin 3.0 L Active Medications Generic Name Dose Route Start Last Admin Trade Name Freq PRN Reason Stop Dose Admin Acetaminophen 650 mg 09/02/16 18:25 09/03/16 11:13 Tylenol - PO 650 mg Q6H PRN Administration PAIN Artificial Tears 1 drop 09/02/16 22:00 09/04/16 14:03 Artificial Tears OU 1 drop TID [facility] Administration Aspirin 81 mg 09/02/16 18:30 09/04/16 09:44 Asa - PO 81 mg DAILY [facility] Administration Escitalopram Oxalate 5 mg 09/02/16 21:45 09/04/16 09:45 Lexapro - PO 5 mg DAILY [facility] Administration Finasteride 5 mg 09/02/16 18:30 09/04/16 09:46 Proscar - PO 5 mg DAILY [facility] Administration Ipratropium [place] 1 amp 09/03/16 09:22 Atrovent 0.02% Nebulizer - NEB 09/10/16 09:23 Q6H PRN DYSPEPSIA Methylprednisolone Sodium Succinate 40 mg 09/03/16 10:00 09/04/16 09:45 Solu-Medrol - IVPB 40 mg BID [facility] Administration Metronidazole 500 mg 09/03/16 14:00 09/04/16 14:04 Flagyl - PO 500 mg TID [facility] Administration Patient's Own 1 each 09/04/16 17:00 09/04/16 18:22 Medication(Anoro IH 1 each Inhaler) (Non- DAILY [facility] Administration Formulary) Sodium Chloride 1 gm 09/02/16 22:00 09/04/16 14:04 Sodium Chloride Tablet - PO 1 gm TID [facility] Administration Vancomycin HCl 250 mg 09/02/16 18:30 09/04/16 18:22 Vancomycin Oral Solution PO 250 mg Q6H [facility] Administration ASSESSMENT/PLAN 86 year-old male with a significant PMH of COPD with multiple aspirations, recurrent c.diff colitis, bladder cancer, BPH, obstructive uropathy, colon cancer s/p colon resection, diastolic heart failure, NSTEMI, and SIADH hyponatremia. Admitted for acute onset SOB and mental status changes. Acute hypercarbic respiratory failure likely secondary to COPD exacerbation, aspiration --mentally clearer today --oxygenation requirements have improved, off BIPAP, satting 95% on 2L NC --BIPAP PRN Lactic acidosis --resolved Diastolic heart failure, chronic --03/28/16 Echo: LV normal, impaired relaxation; RV normal; no acute valvular pathology --no diuresis for now NSTEMI --troponin 0.55-->1.08-->0.84-->0.67 --previous NSTEMI in 2015 in similar circumstances following an acute hypoxic event --continue home dose ASA, will not fully anticoagulate given likely this is demand ischemia plus patient with hematuria; discussed with Dr. Mora who concurs New onset afib with RVR --arrived to ED in sinus tach, brief period of afib to 112, converted back and remains in SR --hemodynamically stable Bladder cancer Gross hematuria, resolving BPH --dark brenda urine --has had chronic powers since 03/2016; had [place] procedure in 04/2016 but not successful in relieving obstruction --current powers was placed about 3 weeks ago --strict I&Os Hyponatremia, resolved --continue salt tabs --fluid restrict --renal consult Colon cancer --no acute issues Recurrent C.diff colitis --continue PO vanc and flagyl --c.diff negative Urine culture positive --sample drawn off a 3-week old powers; contaminant BPH --continue Proscar F/E/N Fluids: PO intake adequate Electrolytes: replete as indicated Nutrition: dysphagia puree, honey thick, Ensure DVT prophylaxis: no chemical prophylaxis due to hematuria; oob, ambulation PT evaluation/daily PT Dispo: another lengthy conversation with HCP Carli Reese about goals of care. She is leaning toward SNF placement at [facility]. DNR/DNI Visit type - Emergency Visit Emergency Visit: Yes ED Registration Date: 09/02/16 Care time: The patient presented to the Emergency Department on the above date and was hospitalized for further evaluation of their emergent condition. - New Patient This patient is new to me today: No - Critical Care Critical Care patient: No
[2016-09-05] MEDS: VANCOMYCIN 250 MG/5 ML ORAL SOLUTION PO SCH ×4 (00:24→17:45)
[2016-09-05] MEDS: ARTIFICIAL TEARS (POLYVINYL ALCOHOL 1.4%) OPTH DROPS OU SCH ×3 (06:10→23:11)
[2016-09-05] MEDS: SODIUM CHLORIDE 1 GM TABLET PO SCH ×3 (06:10→23:11)
[2016-09-05] MEDS: metroNIDAZOLE 250 MG TABLET PO SCH ×3 (06:10→23:11)
--- NOTE | 2016-09-05 07:47 | EKG ---
Test Reason : Blood Pressure : / mmHG Vent. Rate : 082 BPM Atrial Rate : 082 BPM P-R Int : 168 ms QRS Dur : 106 ms QT Int : 366 ms P-R-T Axes : 074 012 038 degrees QTc Int : 427 ms NORMAL SINUS RHYTHM WITH SINUS ARRHYTHMIA LOW VOLTAGE QRS INCOMPLETE RIGHT BUNDLE BRANCH BLOCK BORDERLINE ECG WHEN COMPARED WITH ECG OF 02-SEP-2016 20:26, PREMATURE SUPRAVENTRICULAR COMPLEXES ARE NO LONGER PRESENT Confirmed by ZEKE VERONICA, LINDSEY ([id number]) on 09/05/2016 7:46:29 AM Referred By: Radha ALICIA Confirmed By:LINDSEY ALANIS MD
[2016-09-05] MEDS: ASPIRIN 81 MG CHEWABLE TABLETS PO SCH (09:48)
[2016-09-05] MEDS: FINASTERIDE 5 MG TABLET (FP) PO SCH (09:48)
[2016-09-05] MEDS: methylPREDNISolone NA SUCC 40 MG/1 ML VIAL IVPB SCH (09:48)
[2016-09-05] MEDS: ESCITALOPRAM OXALATE 10 MG TABLET (FP) PO SCH (09:48)
[2016-09-05] MEDS: ANORO IH SCH (09:52)
--- NOTE | 2016-09-05 11:55 | PN ---
Progress Note (short form) - Note Progress Note: Renal Follow up for SIADH Pt seen and examined at the bedside sleeping but arouseable no acute complaints denies any sob or chest pain Vital Signs Temperature 98.1 F 09/05/16 06:00 Pulse Rate 79 09/05/16 11:15 Respiratory Rate 20 09/05/16 06:00 Blood Pressure 116/57 09/05/16 06:00 O2 Sat by Pulse Oximetry (%) 94 L 09/05/16 11:15 Gen: NAD on NC CVS: RRR, no M/R Lungs: Dec BS throughout the lung marin Abd: soft NT/ND Ext: No edema, clubbing or cyanosis : [place] in palce CBC, BMP 09/04/16 05:35 09/04/16 06:00 Microbiology 09/02/16 13:00 Urine - Urine Clean Catch Urine Culture - Preliminary Non Lactose Fermenting Gnb Laboratory Tests 09/04/16 06:00 Calcium 8.8 Magnesium 2.1 Albumin 3.0 L Current Medications Acetaminophen (Tylenol -) 650 mg PO Q6H PRN PRN Reason: PAIN Last Admin: 09/03/16 11:13 Dose: 650 mg Artificial Tears (Artificial Tears) 1 drop OU TID [facility] Last Admin: 09/05/16 06:10 Dose: 1 drop Aspirin (Asa -) 81 mg PO DAILY [facility] Last Admin: 09/05/16 09:48 Dose: 81 mg Escitalopram Oxalate (Lexapro -) 5 mg PO DAILY [facility] Last Admin: 09/05/16 09:48 Dose: 5 mg Finasteride (Proscar -) 5 mg PO DAILY [facility] Last Admin: 09/05/16 09:48 Dose: 5 mg Ipratropium [place] (Atrovent 0.02% Nebulizer -) 1 amp NEB Q6H PRN PRN Reason: DYSPEPSIA Stop: 09/10/16 09:23 Methylprednisolone Sodium Succinate (Solu-Medrol -) 40 mg IVPB BID [facility] Last Admin: 09/05/16 09:48 Dose: 40 mg Metronidazole (Flagyl -) 500 mg PO TID [facility] Last Admin: 09/05/16 06:10 Dose: 500 mg Patient's Own Medication(Anoro Inhaler) (Non- Formulary) 1 each IH DAILY [facility] Last Admin: 09/05/16 09:52 Dose: 1 each Sodium Chloride (Sodium Chloride Tablet -) 1 gm PO TID [facility] Last Admin: 09/05/16 06:10 Dose: 1 gm Vancomycin HCl (Vancomycin Oral Solution) 250 mg PO Q6H [facility] Last Admin: 09/05/16 06:11 Dose: 250 mg A/P 86 year old Gentleman with PMhx of COPD, Hx of Aspriation PNA, C. Diff Colitis , Diastolic HF, NSTEMI, BPH, Hx of Bladder Ca, Colon Ca s/p resection with recent admission at [facility] for SIADH with severe hyponatremia (no records in chart) and C. Diff colitis who presented to [place] ED with acute SOB and AMS and admitted for COPD Exacerbation and NSTEMI. #Hx of SIADH now with normal Na Continue salt tabs TID no signs of volume overload or uncontrolled HTN to warrent change at this time Trend na daily #COPD continue IV steroids and Nebs as per pulmonary #Hx of Cdiff Continue PO Vanco Thank you Wally Ramirez DO
--- NOTE | 2016-09-05 13:11 | PN ---
Progress Note, Physician History of Present Illness: No new complaints. - Current Medication List Current Medications: Active Medications Acetaminophen (Tylenol -) 650 mg PO Q6H PRN PRN Reason: PAIN Last Admin: 09/03/16 11:13 Dose: 650 mg Artificial Tears (Artificial Tears) 1 drop OU TID [facility] Last Admin: 09/05/16 06:10 Dose: 1 drop Aspirin (Asa -) 81 mg PO DAILY [facility] Last Admin: 09/05/16 09:48 Dose: 81 mg Escitalopram Oxalate (Lexapro -) 5 mg PO DAILY [facility] Last Admin: 09/05/16 09:48 Dose: 5 mg Finasteride (Proscar -) 5 mg PO DAILY [facility] Last Admin: 09/05/16 09:48 Dose: 5 mg Ipratropium [place] (Atrovent 0.02% Nebulizer -) 1 amp NEB Q6H PRN PRN Reason: DYSPEPSIA Stop: 09/10/16 09:23 Methylprednisolone Sodium Succinate (Solu-Medrol -) 40 mg IVPB BID [facility] Last Admin: 09/05/16 09:48 Dose: 40 mg Metronidazole (Flagyl -) 500 mg PO TID [facility] Last Admin: 09/05/16 06:10 Dose: 500 mg Patient's Own Medication(Anoro Inhaler) (Non- Formulary) 1 each IH DAILY [facility] Last Admin: 09/05/16 09:52 Dose: 1 each Sodium Chloride (Sodium Chloride Tablet -) 1 gm PO TID [facility] Last Admin: 09/05/16 06:10 Dose: 1 gm Vancomycin HCl (Vancomycin Oral Solution) 250 mg PO Q6H [facility] Last Admin: 09/05/16 12:15 Dose: 250 mg - Objective Vital Signs: Vital Signs Temperature 98.1 F 09/05/16 06:00 Pulse Rate 79 09/05/16 11:15 Respiratory Rate 20 09/05/16 06:00 Blood Pressure 116/57 09/05/16 06:00 O2 Sat by Pulse Oximetry (%) 94 L 09/05/16 11:15 Constitutional: Yes: Well Nourished, No Distress Eyes: Yes: Conjunctiva Clear, EOM Intact HENT: Yes: Atraumatic, Normocephalic Cardiovascular: Yes: Regular Rate and Rhythm. No: JVD Respiratory: Yes: CTA Bilaterally Gastrointestinal: Yes: Normal Bowel Sounds, Soft. No: Tenderness, Rebound Edema: No Labs: CBC, BMP 09/04/16 05:35 09/04/16 06:00 INR, PTT INR 1.27 (0.82-1.09) H 09/03/16 05:00 Assessment/Plan 86 yo male, with bladder cancer (x 20 years ago), s/p colon resection ( for "precancer"), COPD, multiple aspirations, recurrent C.diff colitis, NSTEMI ( 03/2016, in setting of resp distress and sepsis, medically managed -> hematuria with heparin, 04/18/16 Lexiscan nuclear without evidence of ischemia/infarct, LVEF 71%), bladder cancer, BPH, obstructive uropathy requiring chronic powers, and colon cancer s/p colon resection. Patient was recently hospitalized from 08/24- at [facility] for SOB, nausea/ vomiting, weakness, altered mental status, and found to be in severe hyponatremia. He was treated with fluid restriction and Tolvaptan. Patient presented to [facility] ED on 09/02/16 with acute SOB and reported mental status changes per home health aide. In the ED, he was initially in sinus tachycardia -> reported rapid atrial fibrillation (but no rhythm strips were available to confirm this). Patient was transferred to [facility] ICU, but was noted to be sinus rhythm at that time. Trops 0.55 -> 1.08 -> 0.67 (09/03) BNP 6318 CXR - no effusions or pulmonary vascular congestion Cardiology was consulted for reported new onset atrial fibrillation (no documented rhythm to confirm this diagnosis) and NSTEMI. Clinically improved. Denies chest pain. Given age and comorbidities, patient to be managed medically. Telemetry demonstrates periods of PACs and MAT. No afib per review of telemetry. RECS: Continue current conservative medical management. Patient may be discharged from cardiac standpoint with follow-up in the office with Dr. Thornton in 2-3 weeks. No further cardiac studies are needed at this time. Will see prn. Please call with questions.
--- NOTE | 2016-09-05 13:22 | PN ---
Physical Exam: SUBJECTIVE: Patient seen and examined. No complaints on exam. Breathing seems better. Nurse reports continued brief episodes tachycardia. Pt denies palpitations. Niece/HCP very concerned that pt is not on his budesonide nebulizer. Explained that while actively wheezing will substitute same for IV steroids. OBJECTIVE: Vital Signs - 24 hr 3 09/04/16 09/04/16 09/04/16 14:46 18:09 21:00 Temperature 98.1 F 97.9 F Pulse Rate 81 84 Respiratory 18 20 20 Rate Blood Pressure 118/55 122/65 O2 Sat by Pulse 96 Oximetry (%) 3 09/05/16 09/05/16 09/05/16 02:00 06:00 11:15 Temperature 97.9 F 98.1 F Pulse Rate 80 77 79 Respiratory 20 20 Rate Blood Pressure 117/71 116/57 O2 Sat by Pulse 94 L Oximetry (%) GENERAL: The patient is awake, alert, and fully oriented, in no acute distress. HEAD: Normal with no signs of trauma. EYES: PERRL, extraocular movements intact, sclera anicteric, conjunctiva clear. No ptosis. ENT: Ears normal, nares patent, oropharynx clear without exudates, moist mucous membranes. NECK: Trachea midline, full range of motion, supple. LUNGS: Poor inspiratory effort, + crackles HEART: Regular rate and rhythm, S1, S2 without murmur, rub or gallop. ABDOMEN: Soft, nontender, nondistended, normoactive bowel sounds, no guarding, no rebound, no hepatosplenomegaly, no masses. EXTREMITIES: 2+ pulses, warm, well-perfused, no edema. NEUROLOGICAL: Cranial nerves II through XII grossly intact. Normal speech, gait not observed. PSYCH: Normal mood, normal affect. SKIN: Warm, dry, normal turgor, no rashes or lesions noted Active Medications 3 Generic Name Dose Route Start Last Admin Trade Name Freq PRN Reason Stop Dose Admin Acetaminophen 650 mg 09/02/16 18:25 09/03/16 11:13 Tylenol - PO 650 mg Q6H PRN Administration PAIN Artificial Tears 1 drop 09/02/16 22:00 09/05/16 06:10 Artificial Tears OU 1 drop TID CHARISSE Administration Aspirin 81 mg 09/02/16 18:30 09/05/16 09:48 Asa - PO 81 mg DAILY CHARISSE Administration Escitalopram Oxalate 5 mg 09/02/16 21:45 09/05/16 09:48 Lexapro - PO 5 mg DAILY CHARISSE Administration Finasteride 5 mg 09/02/16 18:30 09/05/16 09:48 Proscar - PO 5 mg DAILY CHARISSE Administration Ipratropium [place] 1 amp 09/03/16 09:22 Atrovent 0.02% Nebulizer - NEB 09/10/16 09:23 Q6H PRN DYSPEPSIA Methylprednisolone Sodium Succinate 40 mg 09/03/16 10:00 09/05/16 09:48 Solu-Medrol - IVPB 40 mg BID CHARISSE Administration Metronidazole 500 mg 09/03/16 14:00 09/05/16 06:10 Flagyl - PO 500 mg TID CHARISSE Administration Patient's Own 1 each 09/04/16 17:00 09/05/16 09:52 Medication(Anoro IH 1 each Inhaler) (Non- DAILY CHARISSE Administration Formulary) Sodium Chloride 1 gm 09/02/16 22:00 09/05/16 06:10 Sodium Chloride Tablet - PO 1 gm TID CHARISSE Administration Vancomycin HCl 250 mg 09/02/16 18:30 09/05/16 12:15 Vancomycin Oral Solution PO 250 mg Q6H CHARISSE Administration Echo: Interpretaion summary: The study was technically limited with all images being suboptimal in quality. The left ventricle is normal in size. Probable preserved left ventricular systolic function although regional wall motion could not be accurately assessed due to poor acoustic window. Valvular regurgitation could not be accurately assessed due to poor acoustic window. ASSESSMENT/PLAN: 86yM with PMH of OPD with multiple aspirations, recurrent c.diff colitis, bladder cancer, BPH, obstructive uropathy, colon cancer s/p colon resection, diastolic heart failure, NSTEMI, and SIADH hyponatremia. Admitted for acute onset SOB and mental status changes. COPD exacerbation/hypercarbic respiratory failure - on solumedrol 40mg BID, no longer wheezing. will taper. - cont Anoro Ellipta - cont ipratropium PRN - pulmonary consult appreciated - mental status improved. BiPAP PRN. sinus tach with PACs - sinus on monitor with episodes/runs of tachycardia, episodes brief, irreg. - [facility] Cardiology, Dr. Mora, unable to give B nolberto due to wheezing, CCB not indicated unless sustained. - AC contraindicated due to h/o hematuria previously on heparin - Ok to DC with outpatient f/u Elevated troponin - not likely ACS, likely demand ischemia related to COPD exacerbation. - cont ASA, no AC indicated due to previous bleeding on same. 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 Would not treat unless fever or WBC. lactic acidosis -resolved Hyponatremia - resolved with salt tabs, cont same. recurrent c diff - cont flagyl and vanco po Bladder CA/obstructive uropathy/BPH - no hematuria at present - cont proscar - cont Powers catheter FEN - tolerating po - Lytes stable - dysphagia puree diet DVT PPX - contraindicated given h/o gross hematuria on heparin in past. Dispo: Pt Visit type - Emergency Visit Emergency Visit: Yes ED Registration Date: 09/02/16 Care time: The patient presented to the Emergency Department on the above date and was hospitalized for further evaluation of their emergent condition. - New Patient This patient is new to me today: Yes Date on this admission: 09/05/16 - Critical Care Critical Care patient: No - Discharge Referral Referred to [facility] Med P.C.: No
--- NOTE | 2016-09-05 14:58 | PN ---
Progress Note (short form) - Note Progress Note: Resting in NAD on 3 L NC O2. Denies CP or SOB. No fever. Intake & Output 09/02/16 09/03/16 09/04/16 09/05/16 23:59 23:59 23:59 23:59 Intake Total 225 780 50 300 Output Total 500 800 650 400 Balance -275 -20 -600 -100 Weight 185 lb Last Vital Signs Temp Pulse Resp BP Pulse Ox 98.1 F 79 20 116/57 94 L 09/05/16 06:00 09/05/16 11:15 09/05/16 06:00 09/05/16 06:00 09/05/16 11:15 Active Medications Acetaminophen (Tylenol -) 650 mg PO Q6H PRN PRN Reason: PAIN Last Admin: 09/03/16 11:13 Dose: 650 mg Artificial Tears (Artificial Tears) 1 drop OU TID [facility] Last Admin: 09/05/16 14:32 Dose: 1 drop Aspirin (Asa -) 81 mg PO DAILY [facility] Last Admin: 09/05/16 09:48 Dose: 81 mg Budesonide (Pulmicort 0.5 Mg Nebulizer -) 1 amp NEB BID [facility] Escitalopram Oxalate (Lexapro -) 5 mg PO DAILY [facility] Last Admin: 09/05/16 09:48 Dose: 5 mg Finasteride (Proscar -) 5 mg PO DAILY [facility] Last Admin: 09/05/16 09:48 Dose: 5 mg Ipratropium Left Hand (Atrovent 0.02% Nebulizer -) 1 amp NEB Q6H PRN PRN Reason: DYSPEPSIA Stop: 09/10/16 09:23 Metronidazole (Flagyl -) 500 mg PO TID [facility] Last Admin: 09/05/16 14:30 Dose: 500 mg Patient's Own Medication(Anoro Inhaler) (Non- Formulary) 1 each IH DAILY [facility] Last Admin: 09/05/16 09:52 Dose: 1 each Sodium Chloride (Sodium Chloride Tablet -) 1 gm PO TID [facility] Last Admin: 09/05/16 14:32 Dose: 1 gm Vancomycin HCl (Vancomycin Oral Solution) 250 mg PO Q6H [facility] Last Admin: 09/05/16 12:15 Dose: 250 mg Constitutional: Yes: Awake and alert, NAD Eyes: Yes: Conjunctiva Clear HENT: Yes: Atraumatic, Normocephalic Neck: Yes: WNL Cardiovascular: Yes: Regular Rate and Rhythm Respiratory: Yes: No wheeze, bibasilar rhonchi/crackles Gastrointestinal: Yes: Normal Bowel Sounds, Soft, Other (non tender) Renal/: Yes: Sepulveda Present Extremities: Yes: WNL, Other (Ecchymoses) Edema: LUE: Trace Integumentary: Yes: Bruising (LUE) Neurological: Yes: non-focal Labs: Problem List - Problems (1) COPD with exacerbation Code(s): J44.1 - CHRONIC OBSTRUCTIVE PULMONARY DISEASE W (ACUTE) EXACERBATION (2) Acute kidney injury Code(s): N17.9 - ACUTE KIDNEY FAILURE, UNSPECIFIED (3) NSTEMI (non-ST elevated myocardial infarction) Code(s): I21.4 - NON-ST ELEVATION (NSTEMI) MYOCARDIAL INFARCTION Assessment/Plan O2 as needed BD TX PRN Would advise not to give 2 anti-cholinergics (Anoro & Atrovent) -> D/C PRN Atrovent Agree to monitor off Medrol (now on ICS) No Pulmonary contraindication for D/C Dr Borges
[2016-09-05] MEDS ORDERED: dilTIAZem HCL 50 MG/10 ML - 10 ML VIAL IVPUSH PRN (18:52)
[2016-09-05] MEDS ORDERED: FUROSEMIDE 40 MG/4 ML INJECTABLE VIAL IVPUSH ONE (18:53)
[2016-09-05] MEDS ORDERED: FUROSEMIDE 40 MG/4 ML INJECTABLE VIAL ONE (19:00)
[2016-09-05] MEDS ORDERED: dilTIAZem HCL 50 MG/10 ML - 10 ML VIAL IVPUSH ONE (19:08)
[2016-09-05] MEDS: BUDESONIDE 0.5 MG/2 ML INH SUSP VIAL NEB SCH (21:45)
[2016-09-05] MEDS ORDERED: dilTIAZem HCL 30 MG TABLET (FP) PO SCH (22:00)
[2016-09-05] MEDS: dilTIAZem HCL 30 MG TABLET (FP) PO SCH (23:11)
[2016-09-05] MEDS: ACETAMINOPHEN 325 MG TABLET (FP) PO PRN (23:13)
[2016-09-06] MEDS: VANCOMYCIN 250 MG/5 ML ORAL SOLUTION PO SCH ×3 (00:35→12:53)
[2016-09-06] MEDS ORDERED: PT OWN MED DRAWER 7, Y5N ONE (05:51)
[2016-09-06] MEDS: SODIUM CHLORIDE 1 GM TABLET PO SCH ×2 (06:02→16:13)
[2016-09-06] MEDS: dilTIAZem HCL 30 MG TABLET (FP) PO SCH ×2 (06:02→12:52)
[2016-09-06] MEDS: metroNIDAZOLE 250 MG TABLET PO SCH ×2 (06:02→16:13)
[2016-09-06] MEDS: ARTIFICIAL TEARS (POLYVINYL ALCOHOL 1.4%) OPTH DROPS OU SCH ×2 (06:02→16:13)
[2016-09-06] MEDS: BUDESONIDE 0.5 MG/2 ML INH SUSP VIAL NEB SCH (10:15)
[2016-09-06] MEDS ORDERED: predniSONE 20 MG TABLET (UD) PO ONE (10:21)
--- NOTE | 2016-09-06 10:25 | DS ---
Physical Exam: SUBJECTIVE: Patient seen and examined OBJECTIVE: Vital Signs Period Temp Pulse Resp BP Sys/Martel Pulse Ox Last 24 Hr 97.4 F-98.2 F 79-97 20-20 100-127/50-57 92-94 PHYSICAL EXAM GENERAL: Awake, alert. oriented x 3; conversational HEAD: Normal with no signs of trauma. EYES: Pupils equal, round and reactive to light, extraocular movements intact, sclera anicteric, conjunctiva clear. No lid lag. LUNGS: Diminished breath sounds, wheezing HEART: Regular rate and rhythm, normal S1 and S2 without murmur, rub or gallop. ABDOMEN: Soft, nontender, not distended, normoactive bowel sounds, no guarding, no rebound, no masses. MUSCULOSKELETAL: Normal range of motion at all joints. No bony deformities or tenderness. No CVA tenderness. UPPER EXTREMITIES: 2+ pulses, warm, well-perfused. No cyanosis. No clubbing. No peripheral edema. LOWER EXTREMITIES: 2+ pulses, warm, well-perfused. No calf tenderness. No peripheral edema. NEUROLOGICAL: Cranial nerves II-XII intact. Normal speech. Gait not observed. : powers draining dark brenda urine LABS CBCD WBC 8.6 K/mm3 (4.0-10.0) 09/04/16 05:35 RBC 3.50 M/mm3 (4.00-5.60) L 09/04/16 05:35 Hgb 11.5 GM/dL (11.7-16.9) L 09/04/16 05:35 Hct 34.6 % (35.4-49) L 09/04/16 05:35 MCV 98.9 fl (80-96) H 09/04/16 05:35 MCHC 33.2 g/dl (32.0-35.9) 09/04/16 05:35 RDW 15.6 % (11.9-15.9) 09/04/16 05:35 Plt Count 192 K/MM3 (134-434) 09/04/16 05:35 MPV 7.7 fl (7.5-11.1) 09/04/16 05:35 CMP Sodium 140 mmol/L (136-145) 09/04/16 06:00 Potassium 4.7 mmol/L (3.5-5.1) 09/04/16 06:00 Chloride 100 mmol/L (98-107) 09/04/16 06:00 Carbon Dioxide 31 mmol/L (21-32) 09/04/16 06:00 Anion Gap 9 (8-16) 09/04/16 06:00 BUN 31 mg/dL (7-18) H 09/04/16 06:00 Creatinine 0.5 mg/dL (0.7-1.3) L 09/04/16 06:00 Creat Clearance w eGFR > 60 (>60) 09/04/16 06:00 Calcium 8.8 mg/dL (8.5-10.1) 09/04/16 06:00 Total Bilirubin 0.3 mg/dL (0.2-1.0) D 09/04/16 06:00 AST 24 U/L (15-37) 09/04/16 06:00 ALT 18 U/L (12-78) 09/04/16 06:00 Alkaline Phosphatase 54 U/L (45-117) 09/04/16 06:00 Total Protein 5.8 g/dl (6.4-8.2) L 09/04/16 06:00 Albumin 3.0 g/dl (3.4-5.0) L 09/04/16 06:00 HOSPITAL COURSE: Date of Admission:09/02/16 Date of Discharge: 09/06/16 86 year-old male with a significant PMH of COPD with multiple aspirations, recurrent c.diff colitis, bladder cancer, BPH, obstructive uropathy, colon cancer s/p colon resection, diastolic heart failure, NSTEMI, and SIADH hyponatremia. Admitted for acute onset SOB and mental status changes. Acute hypercarbic respiratory failure likely secondary to COPD exacerbation, aspiration --mentally clearer today --oxygenation requirements have improved, off BIPAP, satting 95% on 2L NC --BIPAP PRN Lactic acidosis --resolved Diastolic heart failure, chronic --03/28/16 Echo: LV normal, impaired relaxation; RV normal; no acute valvular pathology --no diuresis for now NSTEMI --troponin 0.55-->1.08-->0.84-->0.67 --previous NSTEMI in 2015 in similar circumstances following an acute hypoxic event --continue home dose ASA, will not fully anticoagulate given likely this is demand ischemia plus patient with hematuria; discussed with Dr. Mora who concurs New onset afib with RVR --arrived to ED in sinus tach, brief period of afib to 112, converted back and remains in SR --hemodynamically stable Bladder cancer Gross hematuria, resolving BPH --dark brenda urine --has had chronic powers since 03/2016; had Greenlight procedure in 04/2016 but not successful in relieving obstruction --current powers was placed about 3 weeks ago --strict I&Os Hyponatremia, resolved --continue salt tabs --fluid restrict --renal consult Colon cancer --no acute issues Recurrent C.diff colitis --continue PO vanc and flagyl --c.diff negative Urine culture positive --sample drawn off a 3-week old powers; contaminant BPH --continue Proscar Minutes to complete discharge: 35 Discharge Summary Reason For Visit: COPD WITH EXACERBATION Current Active Problems Acute hypercapnic respiratory failure (Acute) COPD with exacerbation (Acute) Condition: Stable - Instructions Diet, Activity, Other Instructions: Patient is being discharged on a slow prednisone taper. See medication list. Disposition: SNF FACILITY - Home Medications Comprehensive Discharge Medication List: Ambulatory Orders Acetaminophen [Tylenol] 650 mg PO Q6H PRN 09/02/16 Aspirin [ASA -] 81 mg PO DAILY 09/02/16 Beclomethasone Dipropionate [Qnasl] 0 mcg NS DAILY 09/02/16 Budesonide [Pulmicort 0.5 mg Nebulizer -] 1 neb PO BID 09/02/16 Cranberry Conc/Ascorbic Acid [Cranberry Concentrate Softgel] 1 each PO DAILY 06/20 Dextran 70/Hypromellose [Artificial Tears] 1 each OP TID 09/02/16 Escitalopram Oxalate [Lexapro -] 5 mg PO DAILY 09/02/16 Finasteride [Proscar -] 5 mg PO DAILY 09/02/16 Flaxseed/Omega3,6,9/Fatty Acid [Flax Seed Oil 1,300 mg Softgel] 1 each PO DAILY 09/02/16 Levalbuterol Tartrate [Levalbuterol Tartrate Hfa] 15 gm IH Q6H 09/02/16 Metronidazole [Flagyl -] 500 mg PO DAILY 09/02/16 Miconazole Nitrate [Zeasorb-AF -] 1 applic TP BID 09/02/16 Multivitamins [Multivit ([facility] Formulary)] 1 tab PO DAILY 09/02/16 Sodium Chloride Tablet - 1 gm PO TID 09/02/16 Umeclidinium Brm/Vilanterol Tr [Anoro Ellipta 62.5-25 Mcg INH] 1 each IH DAILY 09/02/16 Vancomycin HCl [Vancocin HCl] 250 mg PO Q6H 09/02/16 Diltiazem [Cardizem -] 30 mg PO QID tablet 09/06/16 Prednisone 10 mg PO ASDIR #21 tablet 09/06/16 This patient is new to me today: No Emergency Visit: Yes ED Registration Date: 09/02/16 Care time: The patient presented to the Emergency Department on the above date and was hospitalized for further evaluation of their emergent condition. Critical Care patient: No - Discharge Referral Referred to [facility] Med P.C.: No
[2016-09-06] MEDS: ESCITALOPRAM OXALATE 10 MG TABLET (FP) PO SCH (11:15)
[2016-09-06] MEDS: FINASTERIDE 5 MG TABLET (FP) PO SCH (11:15)
[2016-09-06] MEDS: ASPIRIN 81 MG CHEWABLE TABLETS PO SCH (11:15)
[2016-09-06] MEDS: ANORO IH SCH (11:16)
--- NOTE | 2016-09-06 11:41 | PN ---
Progress Note (short form) - Note Progress Note: Renal Follow up for SIADH Pt seen and examined at the bedside no acute complaints for discharge today Vital Signs Temperature 97.8 F 09/06/16 06:00 Pulse Rate 85 09/06/16 06:00 Respiratory Rate 20 09/06/16 06:00 Blood Pressure 102/52 09/06/16 06:00 O2 Sat by Pulse Oximetry (%) 93 L 09/05/16 22:00 Gen: NAD on NC CVS: RRR, no M/R Lungs: Dec BS throughout the lung marin Abd: soft NT/ND Ext: No edema, clubbing or cyanosis : Sepulveda in palce CBC, BMP 09/04/16 05:35 09/04/16 06:00 Microbiology 09/02/16 13:00 Urine - Urine Clean Catch Urine Culture - Final Serratia Marcescens Laboratory Tests 09/04/16 06:00 Calcium 8.8 Magnesium 2.1 Albumin 3.0 L Current Medications Acetaminophen (Tylenol -) 650 mg PO Q6H PRN PRN Reason: PAIN Last Admin: 09/05/16 23:13 Dose: 650 mg Artificial Tears (Artificial Tears) 1 drop OU TID [facility] Last Admin: 09/06/16 06:02 Dose: 1 drop Aspirin (Asa -) 81 mg PO DAILY [facility] Last Admin: 09/06/16 11:15 Dose: 81 mg Budesonide (Pulmicort 0.5 Mg Nebulizer -) 1 amp NEB BID [facility] Last Admin: 09/05/16 21:45 Dose: 1 amp Diltiazem HCl (Cardizem -) 30 mg PO Q6HPO [facility] Last Admin: 09/06/16 06:02 Dose: 30 mg Escitalopram Oxalate (Lexapro -) 5 mg PO DAILY [facility] Last Admin: 09/06/16 11:15 Dose: 5 mg Finasteride (Proscar -) 5 mg PO DAILY [facility] Last Admin: 09/06/16 11:15 Dose: 5 mg Metronidazole (Flagyl -) 500 mg PO TID [facility] Last Admin: 09/06/16 06:02 Dose: 500 mg Patient's Own Medication(Anoro Inhaler) (Non- Formulary) 1 each IH DAILY [facility] Last Admin: 09/06/16 11:16 Dose: 1 each Sodium Chloride (Sodium Chloride Tablet -) 1 gm PO TID [facility] Last Admin: 09/06/16 06:02 Dose: 1 gm Vancomycin HCl (Vancomycin Oral Solution) 250 mg PO Q6H [facility] Last Admin: 09/06/16 06:02 Dose: 250 mg A/P 86 year old Gentleman with PMhx of COPD, Hx of Aspriation PNA, C. Diff Colitis , Diastolic HF, NSTEMI, BPH, Hx of Bladder Ca, Colon Ca s/p resection with recent admission at [place] for SIADH with severe hyponatremia (no records in chart) and C. Diff colitis who presented to [place] ED with acute SOB and AMS and admitted for COPD Exacerbation and NSTEMI. #Hx of SIADH now with normal Na serum Na stable continue salt tabs TID for now continue to monitor Na weekly as an outpatient if any signs of fluid overload may need to decrease IVF Wally Ramirez DO
--- NOTE | 2016-09-06 13:52 | PN ---
Progress Note, Physician History of Present Illness: No new complaints. Working with physical therapy. - Current Medication List Current Medications: Active Medications Acetaminophen (Tylenol -) 650 mg PO Q6H PRN PRN Reason: PAIN Last Admin: 09/05/16 23:13 Dose: 650 mg Artificial Tears (Artificial Tears) 1 drop OU TID [facility] Last Admin: 09/06/16 06:02 Dose: 1 drop Aspirin (Asa -) 81 mg PO DAILY [facility] Last Admin: 09/06/16 11:15 Dose: 81 mg Budesonide (Pulmicort 0.5 Mg Nebulizer -) 1 amp NEB BID [facility] Last Admin: 09/06/16 10:15 Dose: 1 amp Diltiazem HCl (Cardizem -) 30 mg PO Q6HPO [facility] Last Admin: 09/06/16 12:52 Dose: 30 mg Escitalopram Oxalate (Lexapro -) 5 mg PO DAILY [facility] Last Admin: 09/06/16 11:15 Dose: 5 mg Finasteride (Proscar -) 5 mg PO DAILY [facility] Last Admin: 09/06/16 11:15 Dose: 5 mg Metronidazole (Flagyl -) 500 mg PO TID [facility] Last Admin: 09/06/16 06:02 Dose: 500 mg Patient's Own Medication(Anoro Inhaler) (Non- Formulary) 1 each IH DAILY [facility] Last Admin: 09/06/16 11:16 Dose: 1 each Sodium Chloride (Sodium Chloride Tablet -) 1 gm PO TID [facility] Last Admin: 09/06/16 06:02 Dose: 1 gm Vancomycin HCl (Vancomycin Oral Solution) 250 mg PO Q6H [facility] Last Admin: 09/06/16 12:53 Dose: 250 mg - Objective Vital Signs: Vital Signs Temperature 97.6 F 09/06/16 09:00 Pulse Rate 84 09/06/16 10:15 Respiratory Rate 20 09/06/16 09:00 Blood Pressure 110/59 09/06/16 09:00 O2 Sat by Pulse Oximetry (%) 95 09/06/16 10:15 Eyes: Yes: Conjunctiva Clear, EOM Intact HENT: Yes: Atraumatic, Normocephalic Cardiovascular: Yes: Regular Rate and Rhythm. No: JVD, Murmur Respiratory: Yes: CTA Bilaterally Gastrointestinal: Yes: Normal Bowel Sounds, Soft Edema: No Labs: CBC, BMP 09/04/16 05:35 09/04/16 06:00 INR, PTT INR 1.27 (0.82-1.09) H 09/03/16 05:00 Assessment/Plan 86 yo male, with bladder cancer (x 20 years ago), s/p colon resection ( for "precancer"), COPD, multiple aspirations, recurrent C.diff colitis, NSTEMI ( 03/2016, in setting of resp distress and sepsis, medically managed -> hematuria with heparin, 04/18/16 Lexiscan nuclear without evidence of ischemia/infarct, LVEF 71%), bladder cancer, BPH, obstructive uropathy requiring chronic powers, and colon cancer s/p colon resection. Patient was recently hospitalized from 08/24- at [facility] for SOB, nausea/ vomiting, weakness, altered mental status, and found to be in severe hyponatremia. He was treated with fluid restriction and Tolvaptan. Patient presented to [place] ED on 09/02/16 with acute SOB and reported mental status changes per home health aide. In the ED, he was initially in sinus tachycardia -> reported rapid atrial fibrillation (but no rhythm strips were available to confirm this). Patient was transferred to [facility] ICU, but was noted to be sinus rhythm at that time. Trops 0.55 -> 1.08 -> 0.67 (09/03) BNP 6318 CXR - no effusions or pulmonary vascular congestion Cardiology was consulted for reported new onset atrial fibrillation (no documented rhythm to confirm this diagnosis) and NSTEMI. Clinically improved. Denies chest pain. Given age and comorbidities, patient to be managed medically. Telemetry demonstrated periods of PACs and MAT. Started on oral diltiazem yesterday for tachycardia. Currently rate controlled. RECS: Continue current conservative medical management. Will change diltiazem 30 mg po q6h to diltiazem ER 120 mg po daily. Patient may be discharged from cardiac standpoint with follow-up in the office with Dr. Thornton in 2-3 weeks. No further cardiac studies are needed at this time. Will see prn. Please call with questions.
[2016-09-06 14:11] VITALS: BP 108/51; PULSE 89; TEMP 97.8
--- NOTE | 2016-09-07 16:21 | EKG ---
Test Reason : Blood Pressure : / mmHG Vent. Rate : 118 BPM Atrial Rate : 118 BPM P-R Int : 000 ms QRS Dur : 114 ms QT Int : 340 ms P-R-T Axes : 000 024 011 degrees QTc Int : 476 ms POOR DATA QUALITY, INTERPRETATION MAY BE ADVERSELY AFFECTED SINUS TACHYCARDIA RIGHT BUNDLE BRANCH BLOCK ABNORMAL ECG Confirmed by JULIETH VERONICA, MATIAS ([id number]) on 09/07/2016 4:20:53 PM Referred By: Confirmed By:MATIAS CLANCY MD
== END 2016-09-06 16:56 | DRG 280 ==
LOC: FER 12:19 → JICU 16:52 → J4S 09-03 19:31
PROVIDERS: ADMIT Internal Medicine; ATTEND Nurse Practitioner Acute Care
PROC: 5A09357 Assistance with Respiratory Ventilation, Less than 24 Consecutive Hours, Continuous Positive Airway Pressure (ICD-10-PCS; principal; 2016-09-02)
PROC: 3E0F7GC Introduction of Other Therapeutic Substance into Respiratory Tract, Via Natural or Artificial Opening (ICD-10-PCS; 2016-09-02)
DX: I21.4 Non-ST elevation (NSTEMI) myocardial infarction (principal); I50.33 Acute on chronic diastolic (congestive) heart failure; J96.02 Acute respiratory failure with hypercapnia; J44.1 Chronic obstructive pulmonary disease with (acute) exacerbation; E87.2 Acidosis; E22.2 Syndrome of inappropriate secretion of antidiuretic hormone; N17.9 Acute kidney failure, unspecified; N39.0 Urinary tract infection, site not specified; I48.91 Unspecified atrial fibrillation; Z85.038 Personal history of other malignant neoplasm of large intestine; Z85.51 Personal history of malignant neoplasm of bladder; N13.9 Obstructive and reflux uropathy, unspecified; R31.0 Gross hematuria; Z87.891 Personal history of nicotine dependence
CPT/HCPCS: 36415; 36600; 71010-TC; 80053; 81003; 81015; 82550; 82803; 83605; 83735; 83880; 84100; 84484; 85025; 85610; 85730; 87040; 87086; 87186; 87324; 87449; 93005; 93010; 93306-TC; 94640; 94660; 97116-GP; 97161-GP; 99285-25